=== PATIENT | male | born 1980 | race Caucasian/White ===

== ENCOUNTER 2017-10-31 18:20 | Emergency (ER) | payer MEDICARE, MEDICAID ==
--- NOTE | 2017-10-31 19:56 | EDM.PDOC ---
ED HPI GENERAL MEDICAL PROBLEM - General Chief Complaint: Back Pain or Injury Stated Complaint: PAIN ON SIDE/NUMB [id number] Time Seen by Provider: 10/31/17 19:53 Source of Information: Reports: Patient History Limitations: Reports: No Limitations - History of Present Illness INITIAL COMMENTS - FREE TEXT/NARRATIVE: C/o pain right posterior upper right hip pain, onset 2 hours ago noticed first getting off toilet then when sitting in couch. Prior had stumbled while changing clothes, did not fall. No prior injury. Feel like pressure and throbbing. Pain worse with movement. Right Lower Flank Pain Score (Numeric/FACES): 7 - Related Data Allergies Allergy/AdvReac Type Severity Reaction Status Date / Time Penicillins Allergy Rash Verified 10/31/17 18:50 Home Meds: Home Meds Glimepiride [Amaryl] 10 mg PO BIDMEALS 10/31/17 [History] Lisinopril [Zestril] 20 mg PO DAILY 10/31/17 [History] QUEtiapine [SEROquel] 100 mg PO DAILY 10/31/17 [History] Rosiglitazone [Avandia] 4 mg PO DAILY 10/31/17 [History] metFORMIN [Glucophage XR] 1,000 mg PO BIDMEALS 10/31/17 [History] Past Medical History Cardiovascular History: Reports: High Cholesterol, Hypertension Psychiatric History: Reports: Anxiety, Depression Endocrine/Metabolic History: Reports: Diabetes, Type II - Past Surgical History Musculoskeletal Surgical History: Reports: Other (See Below) Other Musculoskeletal Surgeries/Procedures:: left foot surgery Social & Family History - Tobacco Use Smoking Status *Q: Never Smoker Second Hand Smoke Exposure: No - Caffeine Use Caffeine Use: Reports: Energy Drinks, Soda - Alcohol Use Date of Last Drink: 09/01/17 - Recreational Drug Use Recreational Drug Use: No ED ROS GENERAL - Review of Systems Review Of Systems: ROS reveals no pertinent complaints other than HPI. ED EXAM,LOWER BACK PAIN/INJURY - Physical Exam Exam: See Below Exam Limited By: No Limitations General Appearance: Alert, Mild Distress ( with movment, no pain at rest) Eye Exam: Bilateral Eye: PERRL Ears: Normal External Exam Nose: Normal Inspection Throat/Mouth: Normal Inspection Head: Atraumatic, Normocephalic Neck: Normal Inspection Respiratory/Chest: No Respiratory Distress Cardiovascular: Normal Peripheral Pulses, Regular Rate, Rhythm GI/Abdominal: Normal Bowel Sounds, Soft Back Exam: Paraspinal Tenderness ( lateral low lumbar abve right hip.). No: CVA Tenderness (L), CVA Tenderness (R), Vertebral Tenderness Extremities: Normal Range of Motion (pain with 70 degree flexion of hip. Non tender with weight bearing or normal walking stance) Neurological: Alert, Normal Gait Course - Vital Signs Last Recorded V/S: Last Vital Signs Temp 97.2 F 10/31/17 20:50 Pulse 99 10/31/17 20:50 Resp 19 10/31/17 20:50 BP 146/75 H 10/31/17 20:50 Pulse Ox 98 10/31/17 20:50 - Orders/Labs/Meds Orders: Active Orders 24 hr Category Date Time Status Glucose [Blood Glucose Check, Bedside] [RC] ONETIME Care 10/31/17 20:24 Active Hip Min 2V or 3V w Pelvis Rt [CR] Stat Exams 10/31/17 19:52 Taken Labs: Laboratory Tests 10/31/17 10/31/17 Range/Units 18:52 20:29 POC Glucose 204 H (70-105) mg/dl Urine Color Dark yellow (YELLOW) Urine Appearance Slightly cloudy (CLEAR) Urine pH 7.0 (5.0-9.0) Ur Specific [place] 1.020 (1.005-1.030) Urine Protein Negative (NEGATIVE) Urine Glucose (UA) 500 H (NEGATIVE) Urine Ketones Trace H (NEGATIVE) Urine Occult Blood Negative (NEGATIVE) Urine Nitrite Negative (NEGATIVE) Urine Bilirubin Negative (NEGATIVE) Urine Urobilinogen >=8.0 H (0.2-1.0) mg/dL Ur Leukocyte Esterase Negative (NEGATIVE) Urine RBC 0-5 /HPF Urine WBC 0-5 (0-5/HPF) /HPF Ur Epithelial Cells Few /HPF Urine Bacteria Rare (0-FEW/HPF) /HPF Urine Mucus Rare /LPF Urine Other See note Departure - Departure Time of Disposition: 20:43 Disposition: Home, Self-Care 01 Condition: Good Clinical Impression: Muscle strain - Discharge Information Instructions: Muscle Strain, [id number] Forms: ED Department Discharge Additional Instructions: rest alternate tylenol and ibuprofen for discomfort ice pack 10 minutes every 2 hours as needed change positions slowly follow up if not improving - My Orders Last 24 Hours: My Active Orders 10/31/17 19:52 Hip Min 2V or 3V w Pelvis Rt [CR] Stat 10/31/17 20:24 Glucose [Blood Glucose Check, Bedside] [RC] ONETIME - Assessment/Plan Last 24 Hours: My Active Orders 10/31/17 19:52 Hip Min 2V or 3V w Pelvis Rt [CR] Stat 10/31/17 20:24 Glucose [Blood Glucose Check, Bedside] [RC] ONETIME
== END 2017-10-31 20:51 | disposition home or self-care (01) ==
LOC: DL.ED 18:20
DX: S76.011A Strain of muscle, fascia and tendon of right hip, initial encounter (principal); I10 Essential (primary) hypertension; E11.9 Type 2 diabetes mellitus without complications; Z88.0 Allergy status to penicillin; Z79.84 Long term (current) use of oral hypoglycemic drugs; Z79.899 Other long term (current) drug therapy; X58.XXXA Exposure to other specified factors, initial encounter
CPT/HCPCS: 81001; 82962; 99284

== ENCOUNTER 2018-10-30 14:21 | Emergency (ER) | payer MEDICARE, MEDICAID ==
--- NOTE | 2018-10-30 14:31 | EDM.PDOC ---
ED HPI GENERAL MEDICAL PROBLEM - General Chief Complaint: Chest Pain Stated Complaint: LEFT CHEST PAINS, COLD SWEATS, DIZZINESS Time Seen by Provider: 10/30/18 14:31 Source of Information: Reports: Patient, Old Records, RN, RN Notes Reviewed History Limitations: Reports: No Limitations - History of Present Illness INITIAL COMMENTS - FREE TEXT/NARRATIVE: Pt presents to ER with c/o cough with sharp chest especially with coughing. Pt states he was seen last week in clinic for bronchitis. Pt states he was prescribed Zithromax and Prednisone, and completed both medications without improvement. Last night he coughed so hard thinks he may have "popped a rib". He c/o low left side rib pain radiating up to under his arm pit. He reports having cold sweats and feeling shaky. Denies fever or chills. Today he was in "group therapy" and was having constant left lateral rib cage pain. C/O harsh dry cough. Duration: Week(s): (2), Constant Location: Reports: Chest Quality: Reports: Ache, Sharp Severity: Moderate Improves with: Reports: None Worsens with: Reports: Breathing (Coughing) Associated Symptoms: Reports: No Other Symptoms Left Chest Pain Score (Numeric/FACES): 6 - Related Data Allergies Allergy/AdvReac Type Severity Reaction Status Date / Time Penicillins Allergy Rash Verified 10/30/18 14:30 Home Meds: Home Meds Lisinopril [Zestril] 40 mg PO DAILY 10/31/17 [History] metFORMIN [Glucophage XR] 1,000 mg PO BIDMEALS 10/31/17 [History] Fenofibrate 160 mg PO DAILY 10/30/18 [History] Linagliptin [Tradjenta] 5 mg PO DAILY 10/30/18 [History] Prazosin HCl [Prazosin] 5 mg PO BEDTIME 10/30/18 [History] Propranolol [Inderal] 20 mg PO BID 10/30/18 [History] Venlafaxine [Venlafaxine HCl ER] 150 mg PO DAILY 10/30/18 [History] atorvaSTATin Calcium [Atorvastatin Calcium] 40 mg PO DAILY 10/30/18 [History] glipiZIDE [Glucotrol] 10 mg PO BID 10/30/18 [History] Past Medical History Cardiovascular History: Reports: High Cholesterol, Hypertension Psychiatric History: Reports: Anxiety, Depression, PTSD, Other (See Below) Other Psychiatric History: borderline personality disorder Endocrine/Metabolic History: Reports: Diabetes, Type II, Obesity/BMI 30+ - Past Surgical History Musculoskeletal Surgical History: Reports: Other (See Below) Other Musculoskeletal Surgeries/Procedures:: left foot surgery Social & Family History - Family History Family Medical History: Noncontributory - Caffeine Use Caffeine Use: Reports: Soda - Living Situation & Occupation Living situation: Reports: with Family Occupation: Disabled ED ROS GENERAL - Review of Systems Review Of Systems: ROS reveals no pertinent complaints other than HPI. ED EXAM, GENERAL - Physical Exam Exam: See Below Exam Limited By: No Limitations General Appearance: Alert, No Apparent Distress, Obese Nose: Normal Inspection, Normal Mucosa, No Blood Throat/Mouth: Normal Inspection, Normal Lips, Normal Oropharynx, Normal Voice, No Airway Compromise Head: Atraumatic, Normocephalic Neck: Normal Inspection, Supple, Non-Tender, Full Range of Motion Respiratory/Chest: No Respiratory Distress, No Accessory Muscle Use, Decreased Breath Sounds, Other (Harsh dry cough. Chest pain). No: Crackles, Rales, Rhonchi, Wheezing, Stridor Cardiovascular: Normal Peripheral Pulses, Regular Rate, Rhythm, No Edema GI/Abdominal: Normal Bowel Sounds, Soft, Non-Tender, Other (Benign obese abdomen ) Back Exam: Normal Inspection Extremities: Normal Inspection, Normal Range of Motion, Non-Tender, Normal Capillary Refill, No Pedal Edema Neurological: Alert, Oriented, CN II-XII Intact, Normal Cognition, Normal Gait, No Motor/Sensory Deficits Psychiatric: Normal Affect, Normal Mood Skin Exam: Warm, Dry, Intact, Normal Color, No Rash EKG INTERPRETATION EKG Date: 10/30/18 Time: 14:44 Rhythm: Other (SR) Rate (Beats/Min): 75 Wright: Normal P-Wave: Present QRS: Normal (with baseline wander) ST-T: Normal (slight early repol. pattern) QT: Normal Comparison: NA - No Prior EKG EKG Interpretation Comments: No acute ischemic changes. Course - Vital Signs Last Recorded V/S: Last Vital Signs Temp 97.3 F 10/30/18 14:28 Pulse 78 10/30/18 14:28 Resp 14 10/30/18 14:28 BP 125/63 10/30/18 14:28 Pulse Ox 97 10/30/18 14:28 - Orders/Labs/Meds Orders: Active Orders 24 hr Category Date Time Status EKG 12 Lead [EKG Documentation Completion] [RC] STAT Care 10/30/18 14:45 Active RT Post Treatment Assessment [RC] Click to Edit Care 10/30/18 15:28 Active RT Pre-Treatment Assessment [RC] Click to Edit Care 10/30/18 15:28 Active Labs: Laboratory Tests 10/30/18 10/30/18 10/30/18 Range/Units 14:53 14:53 14:53 WBC 9.9 (5.0-10.0) 10^3/uL RBC 4.59 L (4.6-6.2) 10^6/uL Hgb 14.1 (14.0-18.0) g/dL Hct 40.8 (40.0-54.0) % MCV 88.9 (80-100) fL MCH 30.7 (27.0-34.0) pg MCHC 34.6 (33.0-35.0) g/dL Plt Count 288 (150-450) 10^3/uL Neut % (Auto) 55.4 (42.2-75.2) % Lymph % (Auto) 34.5 (20.5-50.1) % [place] % (Auto) 7.6 (2-8) % Eos % (Auto) 2.2 (1.0-3.0) % Baso % (Auto) 0.3 (0.0-1.0) % D-Dimer, Quantitative < 100 (0-400) ng/mL Sodium 136 (135-145) mmol/L Potassium 4.2 (3.6-5.0) mmol/L Chloride 103 (101-111) mmol/L Carbon Dioxide 24.0 (21.0-31.0) mmol/L Anion Gap 13.2 BUN 17 (7-18) mg/dL Creatinine 1.2 (0.6-1.3) mg/dL Est Cr Clr Drug Dosing 90.71 mL/min Estimated GFR (MDRD) > 60 BUN/Creatinine Ratio 14.16 Glucose 204 H (74-105) mg/dL Calcium 9.5 (8.4-10.2) mg/dl Total Bilirubin 0.5 (0.2-1.0) mg/dL AST 26 (10-42) IU/L ALT 37 (10-60) IU/L Alkaline Phosphatase 39 L (42-121) IU/L Troponin I < 0.02 (0.00-0.02) ng/ml Total Protein 7.1 (6.7-8.2) g/dl Albumin 4.2 (3.2-5.5) g/dl Globulin 2.9 Albumin/Globulin Ratio 1.45 Meds: Medications Discontinued Medications Generic Name Dose Route Start Last Admin Trade Name Freq PRN Reason Stop Dose Admin Albuterol 6.7 gm 10/30/18 15:27 Proventil Hfa INH 10/30/18 15:28 ONETIME ONE - Radiology Interpretation Free Text/Narrative:: [facility] Final Radiology Report Call: [phone] assistance Online chat: [email or web address] Name: MERLE MENDOSA Age: 38Years M Date: 10/30/2018 SSN: -- : [id number] Study: XR CHEST 2 VIEWS FRONTAL & LAT Requesting Physician: MARIXA GRAY Images: 2 Addl Studies: Provided Clinical History: Contrast: Contrast Medium: Contrast Amount: Contrast Method: CONFIDENTIALITY STATEMENT This report is intended only for use by the referring physician, and only in accordance with law. If you received this in error, call [phone]. Page 1 of 1 EXAM: XR Chest, 2 Views EXAM DATE/TIME: 10/30/2018 2:44 PM CLINICAL HISTORY: 38 years old, male; Patient HX: Cough, chest pain TECHNIQUE: Imaging protocol: XR of the chest Views: 2 views. COMPARISON: No relevant prior studies available. FINDINGS: Lungs: Unremarkable. No consolidation. Pleural space: Unremarkable. No pleural effusion. No pneumothorax. Heart/Mediastinum: Unremarkable. No cardiomegaly. Bones/joints: Unremarkable. IMPRESSION: No acute findings. Thank you for allowing us to participate in the care of your patient. Dictated and Authenticated by: David Osborne MD 10/30/2018 3:10 PM Central Time ([place] & [place]) Departure - Departure Time of Disposition: 15:23 Disposition: Home, Self-Care 01 Condition: Fair Clinical Impression: Post-viral reactive airway disease, Pleurodynia, viral - Discharge Information *PRESCRIPTION DRUG MONITORING PROGRAM REVIEWED*: No *COPY OF PRESCRIPTION DRUG MONITORING REPORT IN PATIENT SHIRIN: No Instructions: Bronchospasm, Adult, [id number], Pleurodynia Forms: ED Department Discharge Additional Instructions: Rx: Tessalon Perles 200mg Rx: Naprosyn 500mg Use Albuterol Inhaler with spacer device: Two puffs every 4 hours as needed. Follow up in clinic in 3 to 5 days if not improving. - My Orders Last 24 Hours: My Active Orders 10/30/18 14:45 EKG 12 Lead [EKG Documentation Completion] [RC] STAT 10/30/18 15:28 RT Post Treatment Assessment [RC] Click to Edit RT Pre-Treatment Assessment [RC] Click to Edit - Assessment/Plan Last 24 Hours: My Active Orders 10/30/18 14:45 EKG 12 Lead [EKG Documentation Completion] [RC] STAT 10/30/18 15:28 RT Post Treatment Assessment [RC] Click to Edit RT Pre-Treatment Assessment [RC] Click to Edit
[2018-10-30 15:19] LABS: ANION GAP 13.2; CHLORIDE,CL 103 mmol/L (101-111); SODIUM,NA 136 mmol/L (135-145)
[2018-10-30] MEDS ORDERED: Albuterol 6.7 GM Inhaler INH ONE (15:27)
== END 2018-10-30 15:48 | disposition home or self-care (01) ==
LOC: DL.ED 14:21
DX: J45.909 Unspecified asthma, uncomplicated (principal); B34.9 Viral infection, unspecified; R07.81 Pleurodynia; Z88.0 Allergy status to penicillin; Z79.899 Other long term (current) drug therapy; E78.00 Pure hypercholesterolemia, unspecified; I10 Essential (primary) hypertension; E11.9 Type 2 diabetes mellitus without complications; E66.9 Obesity, unspecified; Z79.84 Long term (current) use of oral hypoglycemic drugs; F41.9 Anxiety disorder, unspecified; F32.9 Major depressive disorder, single episode, unspecified
CPT/HCPCS: 36415; 71046; 80053; 84484; 85025; 85379; 93005; 99285; A9270

== ENCOUNTER 2019-03-25 15:36 | Emergency (ER) | payer MEDICARE, MEDICAID ==
--- NOTE | 2019-03-25 17:26 | EDM.PDOC ---
<Cleveland Maher - Last Filed: 03/25/19 18:34> ED HPI GENERAL MEDICAL PROBLEM - General Chief Complaint: Lower Extremity Injury/Pain Stated Complaint: HAD DIZZY SPELL/FELL AND CRACKED ANKLE Time Seen by Provider: 03/25/19 17:25 Source of Information: Reports: Patient History Limitations: Reports: No Limitations - History of Present Illness INITIAL COMMENTS - FREE TEXT/NARRATIVE: 38 y.o M presents with L ankle pain that happened this afternoon. Patient reports that he was walking at home and developed a dizzy spell, reports possible LOC, and reports that L leg gave out. Patient reports falling and hearing a pop in the L ankle. Patient reports numbness now to the L leg as well as diminished sensation. Hx of surgery to the L foot in 2014 with pins. No medications. Patient reports this is his second syncopal episode recently and when the nurse was checking orthostatics he felt a little dizzy again. Onset: Today Location: Reports: Lower Extremity, Left Quality: Reports: Ache Severity: Mild Associated Symptoms: Reports: Syncope. Denies: Chest Pain, Cough, Fever/Chills , Headaches, Loss of Appetite, Nausea/Vomiting Left Ankle Pain Score (Numeric/FACES): 9 - Related Data Allergies Allergy/AdvReac Type Severity Reaction Status Date / Time Penicillins Allergy Rash Verified 03/25/19 16:53 Home Meds: Home Meds Lisinopril [Zestril] 40 mg PO DAILY 10/31/17 [History] metFORMIN [Glucophage XR] 1,000 mg PO BIDMEALS 10/31/17 [History] Fenofibrate 160 mg PO DAILY 10/30/18 [History] Linagliptin [Tradjenta] 5 mg PO DAILY 10/30/18 [History] Venlafaxine [Venlafaxine HCl ER] 225 mg PO DAILY 10/30/18 [History] atorvaSTATin Calcium [Atorvastatin Calcium] 40 mg PO DAILY 10/30/18 [History] glipiZIDE [Glucotrol] 10 mg PO BID 10/30/18 [History] lamoTRIgine [Lamictal] 25 mg PO DAILY 01/23/19 [History] Past Medical History HEENT History: Reports: None Cardiovascular History: Reports: High Cholesterol, Hypertension Respiratory History: Reports: None Gastrointestinal History: Reports: None Genitourinary History: Reports: None Musculoskeletal History: Reports: Fracture Neurological History: Reports: None Psychiatric History: Reports: Anxiety, Depression, PTSD, Other (See Below) Other Psychiatric History: borderline personality disorder Endocrine/Metabolic History: Reports: Diabetes, Type II, Obesity/BMI 30+ Hematologic History: Reports: None Immunologic History: Reports: None Oncologic (Cancer) History: Reports: None Dermatologic History: Reports: None - Infectious Disease History Infectious Disease History: Reports: Chicken Pox - Past Surgical History Head Surgeries/Procedures: Reports: None HEENT Surgical History: Reports: None GI Surgical History: Reports: None Male Surgical History: Reports: None Neurological Surgical History: Reports: None Musculoskeletal Surgical History: Reports: Other (See Below) Other Musculoskeletal Surgeries/Procedures:: left foot surgery Oncologic Surgical History: Reports: None Social & Family History - Family History Family Medical History: Noncontributory - Tobacco Use Smoking Status *Q: Never Smoker - Caffeine Use Caffeine Use: Reports: Soda - Recreational Drug Use Recreational Drug Use: No - Living Situation & Occupation Living situation: Reports: with Family Occupation: Disabled Review of Systems - Review of Systems Review Of Systems: See Below Constitutional: Reports: No Symptoms Eyes: Reports: No Symptoms Ears: Reports: No Symptoms Nose: Reports: No Symptoms Respiratory: Reports: No Symptoms Cardiovascular: Reports: Lightheadedness, Syncope. Denies: Palpitations GI/Abdominal: Reports: No Symptoms Musculoskeletal: Reports: No Symptoms Skin: Reports: No Symptoms Neurological: Reports: Dizziness. Denies: Confusion, Headache, Trouble Speaking , Weakness Psychiatric: Reports: No Symptoms ED EXAM, GENERAL - Physical Exam Exam: See Below Exam Limited By: No Limitations General Appearance: Alert, WD/WN, No Apparent Distress Eye Exam: Bilateral Eye: EOMI, Normal Inspection, PERRL Ears: Normal External Exam, Normal Canal, Hearing Grossly Normal, Normal TMs Ear Exam: Bilateral Ear: Auricle Normal, Canal Normal, TM normal Nose: Normal Inspection, Normal Mucosa, No Blood Throat/Mouth: Normal Inspection, Normal Lips, Normal Teeth, Normal Gums, Normal Oropharynx, Normal Voice, No Airway Compromise Head: Atraumatic, Normocephalic Neck: Normal Inspection, Supple, Non-Tender, Full Range of Motion Respiratory/Chest: No Respiratory Distress, Lungs Clear, Normal Breath Sounds, No Accessory Muscle Use, Chest Non-Tender Cardiovascular: Normal Peripheral Pulses, Regular Rate, Rhythm, No Edema, No Gallop, No JVD, No Murmur, No Rub Peripheral Pulses: 2+: Posterior Tibial (L), Dorsalis Pedis (L) GI/Abdominal: Normal Bowel Sounds, Soft, Non-Tender, No Organomegaly, No Distention, No Abnormal Bruit, No Mass (Male) Exam: Deferred Rectal (Males) Exam: Deferred Back Exam: Normal Inspection, Full Range of Motion, NT Extremities: Normal Inspection, Non-Tender, No Pedal Edema, Normal Capillary Refill, Limited Range of Motion (left ankle) Neurological: Alert, Oriented, CN II-XII Intact, Normal Cognition, Normal Gait, Normal Reflexes, No Motor/Sensory Deficits Psychiatric: Normal Affect, Normal Mood Skin Exam: Warm, Dry, Intact, Normal Color, No Rash Lymphatic: No Adenopathy Course - Vital Signs Last Recorded V/S: Last Vital Signs Temp 96.7 F 03/25/19 16:46 Pulse 103 H 03/25/19 16:46 Resp 18 03/25/19 16:46 BP 139/94 H 03/25/19 16:46 Pulse Ox 97 03/25/19 16:46 Orthostatic Blood Pressure [ 122/74 Standing] Orthostatic Blood Pressure [ 115/57 Sitting] Orthostatic Blood Pressure [ 120/68 Supine] - Orders/Labs/Meds Orders: Active Orders 24 hr Category Date Time Status Blood Glucose Check, Bedside [RC] ONETIME Care 03/25/19 17:38 Active EKG 12 Lead [EKG Documentation Completion] [RC] STAT Care 03/25/19 17:37 Active Orthostatic Vital Signs [RC] ASDIRECTED Care 03/25/19 17:35 Active Peripheral IV Care [RC] . DIRECTED Care 03/25/19 17:38 Active Ankle Min 3V Lt [CR] Urgent Exams 03/25/19 16:59 Taken Chest 1V Frontal [CR] Stat Exams 03/25/19 17:37 Taken Head wo Cont [CT] Stat Exams 03/25/19 17:38 Taken DRUG SCREEN URINE BIORAD [URCHEM] Stat Lab 03/25/19 17:38 Ordered UA RFX JOAN AND CULT IF INDIC [URIN] Stat Lab 03/25/19 17:38 Ordered Sodium Chloride 0.9% [Saline Flush] Med 03/25/19 17:38 Active 10 ml FLUSH ASDIRECTED PRN Peripheral IV Insertion Adult [OM.PC] Stat Oth 03/25/19 17:37 Ordered Medication Orders Sodium Chloride (Saline Flush) 10 ml FLUSH ASDIRECTED PRN PRN Reason: Keep Vein Open Last Admin: 03/25/19 18:21 Dose: 10 ml Labs: Laboratory Tests 03/25/19 03/25/19 03/25/19 Range/Units 17:36 17:36 17:36 WBC 10.7 H (5.0-10.0) 10^3/uL RBC 5.00 (4.6-6.2) 10^6/uL Hgb 15.4 D (14.0-18.0) g/dL Hct 44.1 (40.0-54.0) % MCV 88.2 (80-100) fL MCH 30.8 (27.0-34.0) pg MCHC 34.9 (33.0-35.0) g/dL Plt Count 362 (150-450) 10^3/uL Neut % (Auto) 46.0 (42.2-75.2) % Lymph % (Auto) 44.2 (20.5-50.1) % [place] % (Auto) 7.9 (2-8) % Eos % (Auto) 1.7 (1.0-3.0) % Baso % (Auto) 0.2 (0.0-1.0) % D-Dimer, Quantitative 180 (0-400) ng/mL Sodium 134 L (135-145) mmol/L Potassium 4.0 (3.6-5.0) mmol/L Chloride 100 L (101-111) mmol/L Carbon Dioxide 24.0 (21.0-31.0) mmol/L Anion Gap 14.0 BUN 18 (7-18) mg/dL Creatinine 1.2 (0.6-1.3) mg/dL Est Cr Clr Drug Dosing 93.40 mL/min Estimated GFR (MDRD) > 60 BUN/Creatinine Ratio 15.00 Glucose 212 H (74-105) mg/dL POC Glucose (70-105) mg/dl Calcium 10.3 H (8.4-10.2) mg/dl Magnesium 1.6 L (1.8-2.5) mg/dL Total Bilirubin 0.7 (0.2-1.0) mg/dL AST 29 (10-42) IU/L ALT 40 (10-60) IU/L Alkaline Phosphatase 50 (42-121) IU/L Troponin I 0.05 H* (0.00-0.02) ng/ml Total Protein 8.6 H (6.7-8.2) g/dl Albumin 5.0 (3.2-5.5) g/dl Globulin 3.6 Albumin/Globulin Ratio 1.39 TSH, Ultra Sensitive (0.45-5.33) uIu/mL 03/25/19 03/25/19 Range/Units 17:36 17:51 WBC (5.0-10.0) 10^3/uL RBC (4.6-6.2) 10^6/uL Hgb (14.0-18.0) g/dL Hct (40.0-54.0) % MCV (80-100) fL MCH (27.0-34.0) pg MCHC (33.0-35.0) g/dL Plt Count (150-450) 10^3/uL Neut % (Auto) (42.2-75.2) % Lymph % (Auto) (20.5-50.1) % [place] % (Auto) (2-8) % Eos % (Auto) (1.0-3.0) % Baso % (Auto) (0.0-1.0) % D-Dimer, Quantitative (0-400) ng/mL Sodium (135-145) mmol/L Potassium (3.6-5.0) mmol/L Chloride (101-111) mmol/L Carbon Dioxide (21.0-31.0) mmol/L Anion Gap BUN (7-18) mg/dL Creatinine (0.6-1.3) mg/dL Est Cr Clr Drug Dosing mL/min Estimated GFR (MDRD) BUN/Creatinine Ratio Glucose (74-105) mg/dL POC Glucose 163 H (70-105) mg/dl Calcium (8.4-10.2) mg/dl Magnesium (1.8-2.5) mg/dL Total Bilirubin (0.2-1.0) mg/dL AST (10-42) IU/L ALT (10-60) IU/L Alkaline Phosphatase (42-121) IU/L Troponin I (0.00-0.02) ng/ml Total Protein (6.7-8.2) g/dl Albumin (3.2-5.5) g/dl Globulin Albumin/Globulin Ratio TSH, Ultra Sensitive 1.24 (0.45-5.33) uIu/mL Meds: Medications Generic Name Dose Route Start Last Admin Trade Name Freq PRN Reason Stop Dose Admin Sodium Chloride 10 ml 03/25/19 17:38 03/25/19 18:21 Saline Flush FLUSH 10 ml ASDIRECTED PRN Administration Keep Vein Open Discontinued Medications Generic Name Dose Route Start Last Admin Trade Name Freq PRN Reason Stop Dose Admin Aspirin 324 mg 03/25/19 19:08 03/25/19 19:15 Aspirin PO 03/25/19 19:09 324 mg ONETIME ONE Administration Sodium Chloride 1,000 mls @ 999 mls/hr 03/25/19 17:45 03/25/19 18:21 Normal Saline IV 03/25/19 18:45 999 mls/hr .BOLUS ONE Administration Departure - Departure Disposition: DC/Tfer to Acute Hospital 02 Clinical Impression: Elevated troponin Syncope Qualifiers: Syncope type: unspecified Qualified Code(s): R55 - Syncope and collapse Minor head injury Qualifiers: Encounter type: initial encounter Qualified Code(s): S09.90XA - Unspecified injury of head, initial encounter - Discharge Information Forms: ED Department Discharge Sepsis Event Note - Evaluation Sepsis Screening Result: No Definite Risk - Focused Exam Vital Signs: Vital Signs Temp Pulse Resp BP Pulse Ox 03/25/19 16:46 96.7 F 103 H 18 139/94 H 97 Date Exam was Performed: 03/25/19 Time Exam was Performed: 18:34 - My Orders Last 24 Hours: My Active Orders 03/25/19 16:59 Ankle Min 3V Lt [CR] Urgent 03/25/19 17:37 EKG 12 Lead [EKG Documentation Completion] [RC] STAT Chest 1V Frontal [CR] Stat Peripheral IV Insertion Adult [OM.PC] Stat 03/25/19 17:38 Blood Glucose Check, Bedside [RC] ONETIME Peripheral IV Care [RC] . DIRECTED Head wo Cont [CT] Stat DRUG SCREEN URINE BIORAD [URCHEM] Stat UA RFX JOAN AND CULT IF INDIC [URIN] Stat Sodium Chloride 0.9% [Saline Flush] 10 ml FLUSH ASDIRECTED PRN - Assessment/Plan Last 24 Hours: My Active Orders 03/25/19 16:59 Ankle Min 3V Lt [CR] Urgent 03/25/19 17:37 EKG 12 Lead [EKG Documentation Completion] [RC] STAT Chest 1V Frontal [CR] Stat Peripheral IV Insertion Adult [OM.PC] Stat 03/25/19 17:38 Blood Glucose Check, Bedside [RC] ONETIME Peripheral IV Care [RC] . DIRECTED Head wo Cont [CT] Stat DRUG SCREEN URINE BIORAD [URCHEM] Stat UA RFX JOAN AND CULT IF INDIC [URIN] Stat Sodium Chloride 0.9% [Saline Flush] 10 ml FLUSH ASDIRECTED PRN <Marixa Gilliam - Last Filed: 03/25/19 19:20> ED HPI GENERAL MEDICAL PROBLEM - History of Present Illness INITIAL COMMENTS - FREE TEXT/NARRATIVE: Pt presented to ER with c/o left ankle pain, but arrives diaphoretic reporting that he had a syncopal episode which is how he hurt his ankle. Pt denies chest pain. Pt got up to throw a pop bottle in the trash when he became very lightheaded and "blacked out". He woke up on the floor, unsure of how long he was unconscious, but believes it was seconds, not minutes. Pt has ED EXAM, GENERAL - Physical Exam Free Text/Narrative:: No changes to the exam as documented by the student for this exam. EKG INTERPRETATION EKG Date: 03/25/19 Time: 17:46 Rhythm: Other (sinus rhythm) Rate (Beats/Min): 95 [place]: Normal P-Wave: Present QRS: Normal ST-T: Normal QT: Normal Comparison: No Change Course - Radiology Interpretation Free Text/Narrative:: [facility] [place] [facility] Final Radiology Report Call: [phone] assistance Online chat: [email or web address] Name: MERLE MENDOSA Age: 38Years M Date: 03/25/2019 SSN: -- : [id number] Study: CT HEAD WO Requesting Physician: MARIXA GILLIAM Images: 136 Addl Studies: Provided Clinical History: Contrast: Without Contrast Medium: Contrast Amount: Contrast Method: Page 1 of 2 PROCEDURE INFORMATION: Exam: CT Head Without Contrast Exam date and time: 03/25/2019 6:07 PM Age: 38 years old Clinical indication: Injury or trauma; Fall TECHNIQUE: Imaging protocol: Computed tomography of the head without contrast. Radiation optimization: All CT scans at this facility use at least one of these dose optimization techniques: automated exposure control; mA and/or kV adjustment per patient size (includes targeted exams where dose is matched to clinical indication); or iterative reconstruction. COMPARISON: CT Head wo Cont 03/01/2018 1:36 PM FINDINGS: Brain: There is no evidence of acute hemorrhage within the brain parenchyma or the subarachnoid space. Ventricles: There is no significant ventricular effacement or midline shift. The ventricular system is normal in size and distribution. Bones/joints: The skull is normal. Sinuses: The visualized portions of the sinuses are normal. Mastoid air cells: The mastoid sinuses are normal. Orbits: The visualized portions of the orbits are normal. Soft tissues: The extracranial soft tissues are normal. IMPRESSION: 1. No acute abnormality. 2. No significant change is identified since the prior exam. MERLE MENDOSA | Final Radiology Report CONFIDENTIALITY STATEMENT This report is intended only for use by the referring physician, and only in accordance with law. If you received this in error, call [phone]. Page 2 of 2 Thank you for allowing us to participate in the care of your patient. Dictated and Authenticated by: David Osborne MD 03/25/2019 6:35 PM Central Time ([place] & [place]) [facility] Final Radiology Report Call: [phone] assistance Online chat: [email or web address] Name: MERLE MENDOSA Age: 38Years M Date: 03/25/2019 SSN: -- : 1980 Study: XR CHEST 1 VIEW FRONTAL Requesting Physician: MARIXA GILLIAM Images: 1 Addl Studies: Provided Clinical History: Contrast: Contrast Medium: Contrast Amount: Contrast Method: CONFIDENTIALITY STATEMENT This report is intended only for use by the referring physician, and only in accordance with law. If you received this in error, call [phone]. Page 1 of 1 PROCEDURE INFORMATION: Exam: XR Chest, 1 View Exam date and time: 03/25/2019 6:12 PM Age: 38 years old Clinical indication: Other: Syncope TECHNIQUE: Imaging protocol: XR of the chest Views: 1 view. COMPARISON: CR Chest 1V Frontal 01/23/2019 12:09 PM FINDINGS: Lungs: Unremarkable. No consolidation. Pleural space: Unremarkable. No pleural effusion. No pneumothorax. Heart/Mediastinum: Unremarkable. No cardiomegaly. Bones/joints: Unremarkable. IMPRESSION: No acute findings. Thank you for allowing us to participate in the care of your patient. Dictated and Authenticated by: David Obsorne MD 03/25/2019 6:33 PM Central Time ([place] & [place]) [facility] Final Radiology Report Call: [phone] assistance Online chat: [email or web address] Name: MERLE MENDOSA Age: 38Years M Date: 03/25/2019 SSN: -- : 1980 Study: XR ANKLE COMPLETE MIN 3 VIEWS LEFT Requesting Physician: MARIXA GILLIAM Images: 3 Addl Studies: Provided Clinical History: Contrast: Contrast Medium: Contrast Amount: Contrast Method: CONFIDENTIALITY STATEMENT This report is intended only for use by the referring physician, and only in accordance with law. If you received this in error, call [phone]. Page 1 of 1 PROCEDURE INFORMATION: Exam: XR Left Ankle Exam date and time: 03/25/2019 5:02 PM Age: 38 years old Clinical indication: Pain; Ankle; Left TECHNIQUE: Imaging protocol: XR Left ankle. Views: 3 or more views. COMPARISON: No relevant prior studies available. FINDINGS: Bones/joints: There is spurring of the anterior aspect of the tibiotalar joint. Calcaneal spurs are demonstrated at the origin of the plantar fascia and the insertion of the Achilles tendon. There is no evidence of acute fracture. Soft tissues: There is mild soft tissue swelling. IMPRESSION: Soft tissue swelling without acute bony abnormality. Thank you for allowing us to participate in the care of your patient. Dictated and Authenticated by: David Osborne MD 03/25/2019 5:16 PM Central Time ([place] & [place]) - Re-Assessments/Exams Free Text/Narrative Re-Assessment/Exam: 03/25/19 19:19 I personally performed or re-performed the physical examination and medical decision making. I have verified all student documentation or findings, including history, physical exam and/or medical decision making. Departure - Departure Time of Disposition: 19:19 Condition: Fair, Undetermined - Discharge Information *PRESCRIPTION DRUG MONITORING PROGRAM REVIEWED*: Not Applicable *COPY OF PRESCRIPTION DRUG MONITORING REPORT IN PATIENT SHIRIN: Not Applicable Sepsis Event Note - Focused Exam Date Exam was Performed: 03/25/19 Time Exam was Performed: 19:16
[2019-03-25] MEDS ORDERED: Sodium Chloride 0.9% 10 ML Syringe FLUSH PRN (17:38)
[2019-03-25] MEDS ORDERED: Sodium Chloride 0.9% 1,000 ML IV ONE (17:45)
[2019-03-25 18:04] LABS: CHLORIDE,CL 100 mmol/L (101-111); SODIUM,NA 134 mmol/L (135-145)
[2019-03-25] MEDS ORDERED: Aspirin 81 MG Tab.Chew PO ONE (19:08)
== END 2019-03-25 20:40 ==
LOC: DL.ED 15:36
DX: S06.9X9A Unspecified intracranial injury with loss of consciousness of unspecified duration, initial encounter (principal); R79.89 Other specified abnormal findings of blood chemistry; E78.00 Pure hypercholesterolemia, unspecified; I10 Essential (primary) hypertension; E11.9 Type 2 diabetes mellitus without complications; E66.9 Obesity, unspecified; F41.9 Anxiety disorder, unspecified; F32.9 Major depressive disorder, single episode, unspecified; Z79.899 Other long term (current) drug therapy; Z79.84 Long term (current) use of oral hypoglycemic drugs; Z68.37 Body mass index [BMI] 37.0-37.9, adult; Z88.0 Allergy status to penicillin; W19.XXXA Unspecified fall, initial encounter; Y93.01 Activity, walking, marching and hiking; Y92.009 Unspecified place in unspecified non-institutional (private) residence as the place of occurrence of the external cause
CPT/HCPCS: 36415; 70450; 71045; 73610; 80053; 80305; 81003; 82962; 83735; 84443; 84484; 85025; 85379; 93005; 96360; 99285; A9270; J7030

== ENCOUNTER 2019-04-12 19:11 | Emergency (ER) | payer MEDICARE, MEDICAID ==
[2019-04-12] MEDS ORDERED: Aspirin 81 MG Tab.Chew PO ONE (19:16)
[2019-04-12 19:46] LABS: ANION GAP 14.1; CHLORIDE,CL 103 mmol/L (101-111); SODIUM,NA 135 mmol/L (135-145)
[2019-04-12] MEDS ORDERED: Nitroglycerin 0.4 MG Tab.SL SL ONE (20:04)
--- NOTE | 2019-04-12 20:09 | EDM.PDOC ---
ED HPI GENERAL MEDICAL PROBLEM - General Chief Complaint: Chest Pain Stated Complaint: CHEST PRESSURE Time Seen by Provider: 04/12/19 19:13 Source of Information: Reports: Patient History Limitations: Reports: No Limitations - History of Present Illness INITIAL COMMENTS - FREE TEXT/NARRATIVE: chest pain constant x 2 weeks, doesn't really change with activity, o SOB, Intermittent dizziness, Pain sharp, pressure, No change with movement. rates / . States has seen neurology for dizziness is scheduled to see cardiology as last ED visit initial troponin elevated and transferred to [facility], Repeat negative and was discharged home. Denied tobacco use. No GI sx. No fever or chills. No recent cough. No nausea or vomiting. No change in appetite. Denied anxiety. Mid-Sternal Chest Pain Score (Numeric/FACES): 9 - Related Data Allergies Allergy/AdvReac Type Severity Reaction Status Date / Time Penicillins Allergy Rash Verified 04/12/19 19:24 Home Meds: Home Meds Lisinopril [Zestril] 40 mg PO DAILY 10/31/17 [History] metFORMIN [Glucophage XR] 1,000 mg PO BIDMEALS 10/31/17 [History] Fenofibrate 160 mg PO DAILY 10/30/18 [History] Linagliptin [Tradjenta] 5 mg PO DAILY 10/30/18 [History] Venlafaxine [Venlafaxine HCl ER] 225 mg PO DAILY 10/30/18 [History] atorvaSTATin Calcium [Atorvastatin Calcium] 40 mg PO DAILY 10/30/18 [History] glipiZIDE [Glucotrol] 10 mg PO BID 10/30/18 [History] lamoTRIgine [Lamictal] 25 mg PO DAILY 01/23/19 [History] Past Medical History HEENT History: Reports: None Cardiovascular History: Reports: High Cholesterol, Hypertension Respiratory History: Reports: None Gastrointestinal History: Reports: None Genitourinary History: Reports: None Musculoskeletal History: Reports: Fracture Neurological History: Reports: None Psychiatric History: Reports: Anxiety, Depression, PTSD, Other (See Below) Other Psychiatric History: borderline personality disorder Endocrine/Metabolic History: Reports: Diabetes, Type II, Obesity/BMI 30+ Hematologic History: Reports: None Immunologic History: Reports: None Oncologic (Cancer) History: Reports: None Dermatologic History: Reports: None - Infectious Disease History Infectious Disease History: Reports: Chicken Pox - Past Surgical History Head Surgeries/Procedures: Reports: None HEENT Surgical History: Reports: None GI Surgical History: Reports: None Male Surgical History: Reports: None Neurological Surgical History: Reports: None Musculoskeletal Surgical History: Reports: Other (See Below) Other Musculoskeletal Surgeries/Procedures:: left foot surgery Oncologic Surgical History: Reports: None Social & Family History - Family History Family Medical History: Noncontributory - Tobacco Use Smoking Status *Q: Never Smoker Second Hand Smoke Exposure: No - Caffeine Use Caffeine Use: Reports: Soda - Recreational Drug Use Recreational Drug Use: No - Living Situation & Occupation Living situation: Reports: with Family Occupation: Disabled ED ROS GENERAL - Review of Systems Review Of Systems: Comprehensive ROS is negative, except as noted in HPI. ED EXAM, GENERAL - Physical Exam Exam: See Below Exam Limited By: No Limitations General Appearance: Alert, No Apparent Distress Eye Exam: Bilateral Eye: EOMI Ears: Normal External Exam, Hearing Grossly Normal, Normal TMs Nose: Normal Inspection Throat/Mouth: Normal Inspection, Normal Voice Head: Atraumatic, Normocephalic Neck: Normal Inspection Respiratory/Chest: No Respiratory Distress, Lungs Clear, Normal Breath Sounds Cardiovascular: Normal Peripheral Pulses, Regular Rate, Rhythm, No Edema, No JVD , No Rub GI/Abdominal: Normal Bowel Sounds, Soft, Non-Tender Rectal (Males) Exam: Normal Exam Extremities: Normal Range of Motion Neurological: Alert, Oriented Psychiatric: Flat Affect Skin Exam: Warm, Dry, Wound/Incision (dime size abrasion right elbow). No: Diaphoretic, Erythema, Increased Warmth EKG INTERPRETATION Rhythm: NSR Course - Vital Signs Last Recorded V/S: Last Vital Signs Temp 96 F L 04/12/19 19:13 Pulse 94 04/12/19 19:13 Resp 18 04/12/19 19:13 BP 123/77 04/12/19 20:09 Pulse Ox 97 04/12/19 19:13 - Orders/Labs/Meds Orders: Active Orders 24 hr Category Date Time Status EKG 12 Lead [EKG Documentation Completion] [RC] URGENT Care 04/12/19 22:59 Active EKG Documentation Completion [RC] URGENT Care 04/12/19 19:16 Active Labs: Laboratory Tests 04/12/19 04/12/19 04/12/19 Range/Units 19:20 19:20 19:20 WBC 8.3 (5.0-10.0) 10^3/uL RBC 4.63 (4.6-6.2) 10^6/uL Hgb 14.3 (14.0-18.0) g/dL Hct 40.3 (40.0-54.0) % MCV 87.0 (80-100) fL MCH 30.9 (27.0-34.0) pg MCHC 35.5 H (33.0-35.0) g/dL Plt Count 317 (150-450) 10^3/uL Neut % (Auto) 47.0 (42.2-75.2) % Lymph % (Auto) 43.2 (20.5-50.1) % Whitfield % (Auto) 7.5 (2-8) % Eos % (Auto) 2.1 (1.0-3.0) % Baso % (Auto) 0.2 (0.0-1.0) % D-Dimer, Quantitative < 100 (0-400) ng/mL Sodium 135 (135-145) mmol/L Potassium 4.1 (3.6-5.0) mmol/L Chloride 103 (101-111) mmol/L Carbon Dioxide 22.0 (21.0-31.0) mmol/L Anion Gap 14.1 BUN 11 (7-18) mg/dL Creatinine 1.0 (0.6-1.3) mg/dL Est Cr Clr Drug Dosing 112.08 mL/min Estimated GFR (MDRD) > 60 BUN/Creatinine Ratio 11.00 Glucose 265 H (74-105) mg/dL Lactic Acid (0.5-2.0) mmol/L Calcium 9.6 (8.4-10.2) mg/dl Magnesium 1.5 L (1.8-2.5) mg/dL Total Bilirubin 0.6 (0.2-1.0) mg/dL AST 26 (10-42) IU/L ALT 36 (10-60) IU/L Alkaline Phosphatase 48 (42-121) IU/L CK-MB (CK-2) (0.4-4.7) ng/mL Troponin I 0.04 H* (0.00-0.02) ng/ml C-Reactive Protein (0.0-1.3) mg/dL Total Protein 7.3 (6.7-8.2) g/dl Albumin 4.2 (3.2-5.5) g/dl Globulin 3.1 Albumin/Globulin Ratio 1.35 Amylase 67 (28-100) U/L Lipase 101 H (22-51) U/L TSH, Ultra Sensitive (0.45-5.33) uIu/mL 04/12/19 04/12/19 04/12/19 Range/Units 19:20 19:20 19:20 WBC (5.0-10.0) 10^3/uL RBC (4.6-6.2) 10^6/uL Hgb (14.0-18.0) g/dL Hct (40.0-54.0) % MCV (80-100) fL MCH (27.0-34.0) pg MCHC (33.0-35.0) g/dL Plt Count (150-450) 10^3/uL Neut % (Auto) (42.2-75.2) % Lymph % (Auto) (20.5-50.1) % Whitfield % (Auto) (2-8) % Eos % (Auto) (1.0-3.0) % Baso % (Auto) (0.0-1.0) % D-Dimer, Quantitative (0-400) ng/mL Sodium (135-145) mmol/L Potassium (3.6-5.0) mmol/L Chloride (101-111) mmol/L Carbon Dioxide (21.0-31.0) mmol/L Anion Gap BUN (7-18) mg/dL Creatinine (0.6-1.3) mg/dL Est Cr Clr Drug Dosing mL/min Estimated GFR (MDRD) BUN/Creatinine Ratio Glucose (74-105) mg/dL Lactic Acid 2.1 H* (0.5-2.0) mmol/L Calcium (8.4-10.2) mg/dl Magnesium (1.8-2.5) mg/dL Total Bilirubin (0.2-1.0) mg/dL AST (10-42) IU/L ALT (10-60) IU/L Alkaline Phosphatase (42-121) IU/L CK-MB (CK-2) 2.90 (0.4-4.7) ng/mL Troponin I (0.00-0.02) ng/ml C-Reactive Protein (0.0-1.3) mg/dL Total Protein (6.7-8.2) g/dl Albumin (3.2-5.5) g/dl Globulin Albumin/Globulin Ratio Amylase (28-100) U/L Lipase (22-51) U/L TSH, Ultra Sensitive 1.02 (0.45-5.33) uIu/mL 04/12/19 04/12/19 Range/Units 19:20 22:20 WBC (5.0-10.0) 10^3/uL RBC (4.6-6.2) 10^6/uL Hgb (14.0-18.0) g/dL Hct (40.0-54.0) % MCV (80-100) fL MCH (27.0-34.0) pg MCHC (33.0-35.0) g/dL Plt Count (150-450) 10^3/uL Neut % (Auto) (42.2-75.2) % Lymph % (Auto) (20.5-50.1) % Whitfield % (Auto) (2-8) % Eos % (Auto) (1.0-3.0) % Baso % (Auto) (0.0-1.0) % D-Dimer, Quantitative (0-400) ng/mL Sodium (135-145) mmol/L Potassium (3.6-5.0) mmol/L Chloride (101-111) mmol/L Carbon Dioxide (21.0-31.0) mmol/L Anion Gap BUN (7-18) mg/dL Creatinine (0.6-1.3) mg/dL Est Cr Clr Drug Dosing mL/min Estimated GFR (MDRD) BUN/Creatinine Ratio Glucose (74-105) mg/dL Lactic Acid (0.5-2.0) mmol/L Calcium (8.4-10.2) mg/dl Magnesium (1.8-2.5) mg/dL Total Bilirubin (0.2-1.0) mg/dL AST (10-42) IU/L ALT (10-60) IU/L Alkaline Phosphatase (42-121) IU/L CK-MB (CK-2) (0.4-4.7) ng/mL Troponin I < 0.02 (0.00-0.02) ng/ml C-Reactive Protein 2.1 H (0.0-1.3) mg/dL Total Protein (6.7-8.2) g/dl Albumin (3.2-5.5) g/dl Globulin Albumin/Globulin Ratio Amylase (28-100) U/L Lipase (22-51) U/L TSH, Ultra Sensitive (0.45-5.33) uIu/mL Meds: Medications Discontinued Medications Generic Name Dose Route Start Last Admin Trade Name Freq PRN Reason Stop Dose Admin Al Hydroxide/Mg Hydroxide 30 ml 04/12/19 20:35 04/12/19 20:53 Gi Cocktail PO 04/12/19 20:36 30 ml ONETIME ONE Administration Aspirin 324 mg 04/12/19 19:16 04/12/19 19:22 Aspirin PO 04/12/19 19:17 324 mg ONETIME ONE Administration Famotidine 20 mg 04/12/19 21:00 04/12/19 21:04 Pepcid IVPUSH 04/12/19 21:01 20 mg ONETIME ONE Administration Nitroglycerin 0.4 mg 04/12/19 20:04 04/12/19 20:09 Nitrostat SL 04/12/19 20:05 0.4 mg ONETIME ONE Administration - Re-Assessments/Exams Free Text/Narrative Re-Assessment/Exam: Trial nitro, dropped BP, c.o feeling worse and dizzy. No change in chest pain. Some improvement in pain with GI cocktail. Departure - Departure Time of Disposition: 23:02 Disposition: Home, Self-Care 01 Condition: Good Clinical Impression: Atypical chest pain Instructions: Nonspecific Chest Pain, [id number] Referrals: Maryellen Salgado NP [Ordering Only Provider] - Forms: ED Department Discharge Additional Instructions: light bland diet, low fat clinic follow up on sunday Omeprazole 10mg one twice daily for one week then one daily Sepsis Event Note - Evaluation Sepsis Screening Result: No Definite Risk - Focused Exam Vital Signs: Vital Signs Temp Pulse Resp BP BP Pulse Ox 04/12/19 20:09 123/77 04/12/19 19:13 96 F L 94 18 147/80 H 97 Date Exam was Performed: 04/13/19 Time Exam was Performed: 02:27 - My Orders Last 24 Hours: My Active Orders 04/12/19 19:16 EKG Documentation Completion [RC] URGENT 04/12/19 22:59 EKG 12 Lead [EKG Documentation Completion] [RC] URGENT - Assessment/Plan Last 24 Hours: My Active Orders 04/12/19 19:16 EKG Documentation Completion [RC] URGENT 04/12/19 22:59 EKG 12 Lead [EKG Documentation Completion] [RC] URGENT
[2019-04-12] MEDS ORDERED: GI Cocktail Oral Solution 30 ML PO ONE (20:35)
[2019-04-12] MEDS ORDERED: Famotidine 20 MG/2 ML SDV IVPUSH ONE (21:00)
== END 2019-04-12 23:12 | disposition home or self-care (01) ==
LOC: DL.ED 19:11
DX: R07.89 Other chest pain (principal)
CPT/HCPCS: 36415; 80053; 82150; 82553; 83605; 83690; 83735; 84443; 84484; 85025; 85379; 86140; 93005; 96374; 99284; 99285; A9270; J3490

== ENCOUNTER 2019-04-19 13:28 | Emergency (ER) | payer MEDICARE, MEDICAID ==
--- NOTE | 2019-04-19 14:14 | EDM.PDOC ---
ED HPI GENERAL MEDICAL PROBLEM - General Chief Complaint: General Stated Complaint: DIZZY/LIGHTHEADED/CHILLS Time Seen by Provider: 04/19/19 13:45 Source of Information: Reports: Patient, RN Notes Reviewed History Limitations: Reports: No Limitations - History of Present Illness INITIAL COMMENTS - FREE TEXT/NARRATIVE: ED with c/o feeling warm, dizzy this am. body aches. Concerned, due to previous syncopal episodes. Upcoming cardiology evaluation. - Related Data Allergies Allergy/AdvReac Type Severity Reaction Status Date / Time Penicillins Allergy Rash Verified 04/19/19 13:35 Home Meds: Home Meds Lisinopril [Zestril] 40 mg PO DAILY 10/31/17 [History] metFORMIN [Glucophage XR] 1,000 mg PO BIDMEALS 10/31/17 [History] Fenofibrate 160 mg PO DAILY 10/30/18 [History] Linagliptin [Tradjenta] 5 mg PO DAILY 10/30/18 [History] Venlafaxine [Venlafaxine HCl ER] 225 mg PO DAILY 10/30/18 [History] atorvaSTATin Calcium [Atorvastatin Calcium] 40 mg PO DAILY 10/30/18 [History] glipiZIDE [Glucotrol] 10 mg PO BID 10/30/18 [History] lamoTRIgine [Lamictal] 25 mg PO DAILY 01/23/19 [History] Past Medical History HEENT History: Reports: None Cardiovascular History: Reports: High Cholesterol, Hypertension, Syncope Respiratory History: Reports: None Gastrointestinal History: Reports: None Genitourinary History: Reports: None Musculoskeletal History: Reports: Fracture Neurological History: Reports: None Psychiatric History: Reports: Anxiety, Depression, PTSD, Other (See Below) Other Psychiatric History: borderline personality disorder Endocrine/Metabolic History: Reports: Diabetes, Type II, Obesity/BMI 30+ Hematologic History: Reports: None Immunologic History: Reports: None Oncologic (Cancer) History: Reports: None Dermatologic History: Reports: None - Infectious Disease History Infectious Disease History: Reports: Chicken Pox - Past Surgical History Head Surgeries/Procedures: Reports: None HEENT Surgical History: Reports: None GI Surgical History: Reports: None Male Surgical History: Reports: None Neurological Surgical History: Reports: None Musculoskeletal Surgical History: Reports: Other (See Below) Other Musculoskeletal Surgeries/Procedures:: left foot surgery Oncologic Surgical History: Reports: None Social & Family History - Family History Family Medical History: Noncontributory - Tobacco Use Smoking Status *Q: Never Smoker - Caffeine Use Caffeine Use: Reports: Soda - Living Situation & Occupation Living situation: Reports: with Family Occupation: Disabled ED ROS GENERAL - Review of Systems Review Of Systems: Comprehensive ROS is negative, except as noted in HPI. Constitutional: Reports: Fever, Malaise, Diaphoresis, Decreased Appetite HEENT: Reports: Sinus Problem, Vertigo Respiratory: Reports: Cough Cardiovascular: Reports: Chest Pain, Lightheadedness Musculoskeletal: Reports: Joint Pain, Muscle Pain Skin: Reports: No Symptoms Neurological: Reports: Headache ED EXAM, GENERAL - Physical Exam Exam: See Below Exam Limited By: No Limitations General Appearance: Alert, Anxious, Mild Distress Eye Exam: Bilateral Eye: EOMI Ears: Normal External Exam, Normal TMs Ear Exam: Bilateral Ear: TM Dull Nose: Normal Inspection Throat/Mouth: Normal Inspection Head: Atraumatic, Normocephalic Neck: Normal Inspection Respiratory/Chest: No Respiratory Distress, Lungs Clear, Normal Breath Sounds Cardiovascular: Normal Peripheral Pulses, Regular Rate, Rhythm, Tachycardia GI/Abdominal: Normal Bowel Sounds, Soft, Non-Tender Back Exam: Full Range of Motion Extremities: Normal Inspection, Normal Range of Motion Neurological: Alert, Oriented, Normal Cognition Psychiatric: Normal Mood, Anxious Skin Exam: Warm, Dry, Intact, Normal Color, Diaphoretic Course - Vital Signs Last Recorded V/S: Last Vital Signs Temp 99.4 F 04/19/19 13:31 Pulse 115 H 04/19/19 13:31 Resp 20 04/19/19 13:31 BP 121/75 04/19/19 13:31 Pulse Ox 97 04/19/19 13:31 Departure - Departure Time of Disposition: 14:11 Disposition: Home, Self-Care 01 Condition: Good Clinical Impression: Influenza A - Discharge Information *PRESCRIPTION DRUG MONITORING PROGRAM REVIEWED*: No *COPY OF PRESCRIPTION DRUG MONITORING REPORT IN PATIENT SHIRIN: No Instructions: Influenza, Adult, [id number], Cough, Adult, [id number] Referrals: Maryellen Salgado NP [Primary Care Provider] - Forms: ED Department Discharge Additional Instructions: light diet encourage liquids alternate tylenol 650mg and ibuprofen 400mg every 4 hours as needed for fever/ discomfort rest avoid exposure to others frequent hand washing OTC cough and could medications per label instructions Sepsis Event Note - Evaluation Sepsis Screening Result: No Definite Risk - Focused Exam Date Exam was Performed: 04/20/19 Time Exam was Performed: 15:23
== END 2019-04-19 14:24 | disposition home or self-care (01) ==
LOC: DL.ED 13:28
DX: J10.1 Influenza due to other identified influenza virus with other respiratory manifestations (principal); E11.9 Type 2 diabetes mellitus without complications; F41.9 Anxiety disorder, unspecified; F32.9 Major depressive disorder, single episode, unspecified; I10 Essential (primary) hypertension; E66.9 Obesity, unspecified; Z79.84 Long term (current) use of oral hypoglycemic drugs; Z79.899 Other long term (current) drug therapy; Z88.0 Allergy status to penicillin
CPT/HCPCS: 87081; 87430; 87804; 99282; 99284

== ENCOUNTER 2019-06-24 05:59 | Day surgery (SDC) | payer MEDICARE, MEDICAID ==
[2019-06-24] MEDS ORDERED: Sodium Chloride 0.9% 10 ML Syringe FLUSH PRN (06:00)
[2019-06-24] MEDS ORDERED: fentaNYL 100 MCG/2 ML SDV IV ONE ×3 (06:00→07:01)
[2019-06-24] MEDS ORDERED: Midazolam 1 MG/ML 2 ML SDV IV ONE ×5 (06:00→07:09)
[2019-06-24] MEDS ORDERED: Midazolam 1 MG/ML 2 ML SDV ONE (06:19)
[2019-06-24] MEDS ORDERED: fentaNYL 100 MCG/2 ML SDV ONE (06:19)
[2019-06-24] MEDS ORDERED: Dextrose 5%-0.45% NaCl 1,000 ML IV SCH (06:20)
--- NOTE | 2019-06-24 08:08 | OR ---
DATE: 06/24/2019 PROCEDURE: Total colonoscopy. INSTRUMENT USED: [id number] Olympus video colonoscope. PREMEDICATIONS: Fentanyl 100 mcg intravenous, Versed 3 mg intravenous. Nasal O2 cannula. The procedure was done under pulse oximetry, BP recording, and property assessment monitor. INDICATION: The patient with rectal bleeding. Colonoscopic examination is done for detection of any polypoid lesions and removal, endoscopic hemostasis therapy if needed. DESCRIPTION OF PROCEDURE: Initial rectal exam was unremarkable. Rigid anoscopy showed small hemorrhoids without bleeding from this. The colonoscope was passed with ease into the ileocecal area. Photographs were taken of the normal- appearing cecum identified by landmarks of appendiceal orifice and double-bulged ileocecal folds. No bleeding was noted from any of the visualized areas at the commencement of the examination. The bowel preparation was found to be adequate, [place] scale 2 regions, total score 6. No stricture. No vascular ectasia. No large isolated ulcerations seen. No evidence of diffuse inflammatory bowel disease in the form of friability, contact bleeding, or ulcerations. No polyp or tumor mass identified. Probing the proximal sides of folds and flexures using adequate distention and clearing up the stool material, withdrawal of the scope was made. Cecum to rectum time over 6 minutes. No bleeding was noted from any of the visualized areas at the completion of examination. IMPRESSION: Internal hemorrhoids. The patient tolerated the procedure well. [facility] /[id number]
== END 2019-06-24 09:35 | disposition home or self-care (01) ==
LOC: DL.ENDO 05:59
PROVIDERS: ATTEND Internal Medicine Gastroenterology
DX: K64.8 Other hemorrhoids (principal); K62.5 Hemorrhage of anus and rectum; E66.09 Other obesity due to excess calories; E11.9 Type 2 diabetes mellitus without complications; F41.1 Generalized anxiety disorder; F32.9 Major depressive disorder, single episode, unspecified; E78.5 Hyperlipidemia, unspecified; I10 Essential (primary) hypertension; M54.5 Low back pain; Z86.59 Personal history of other mental and behavioral disorders; Z68.38 Body mass index [BMI] 38.0-38.9, adult
CPT/HCPCS: 45378; J2250; J3010; J7042; G0121

== ENCOUNTER 2019-07-31 15:45 | Inpatient (IN) | payer MEDICARE, MEDICAID ==
[2019-07-31] MEDS ORDERED: Sodium Chloride 0.9% 10 ML Syringe FLUSH PRN (15:47)
[2019-07-31] MEDS ORDERED: Sodium Chloride 0.9% 1,000 ML IV ONE (15:47)
[2019-07-31] MEDS ORDERED: Ondansetron 4 MG/2 ML SDV IVPUSH ONE (16:17)
[2019-07-31 16:33] LABS: ANION GAP 17.2 mEq/L (7-13); CHLORIDE,CL 96 mmol/L (98-107); SODIUM,NA 133 mmol/L (136-145)
[2019-07-31] MEDS ORDERED: Sodium Chloride 0.9% 1,000 ML IV SCH (17:15)
[2019-07-31] MEDS ORDERED: Insulin Regular, Human 100 Units/ML 3 ML Vial IV ONE (18:57)
[2019-07-31] MEDS ORDERED: Calcium Gluconate 10% 1 GM/10 ML SDV IVPUSH ONE (18:57)
[2019-07-31] MEDS ORDERED: Ondansetron 4 MG Tab.DIS PO PRN (18:57)
[2019-07-31] MEDS ORDERED: Glucagon,Human Recombinant 1 MG Vial IM PRN (18:57)
[2019-07-31] MEDS ORDERED: Acetaminophen 325 MG Tab PO PRN (18:57)
[2019-07-31] MEDS ORDERED: Ondansetron 4 MG/2 ML SDV IVPUSH PRN (18:57)
[2019-07-31] MEDS ORDERED: 50% Dextrose in Water 50 ML Syringe IVPUSH PRN (18:57)
[2019-07-31] MEDS ORDERED: Sodium Polystyrene Sulfonate 15 GM/60 ML Susp 60 ML Bot PO ONE (18:57)
--- NOTE | 2019-07-31 19:35 | PCM.HP ---
H&P History of Present Illness - General Date of Service: 07/31/19 Admit Problem/Dx: Admission Diagnosis/Problem Admission Diagnosis/Problem Acute kidney injury Source of Information: Patient, Old Records - History of Present Illness Initial Comments - Free Text/Narative: Mr. Go is a 38-year-old male with medical history significant for nonischemic cardiomyopathy with EF of 40 to 45% on echocardiogram from 06/23/2019 , type 2 diabetes on oral medications, dyslipidemia, hypertension, Tourette syndrome, depression, borderline personality disorder, anxiety, and history of suicidal attempt in 2019 who presented to the ED with complaints of generalized malaise and elevated blood glucose and was found to have hyperkalemia and acute renal failure. Patient reports that he was his normal self today. Reports that he was helping a friend. They went to a bar where the friend was drinking but he was drinking water. States that he had been keeping hydrated because they were working in the heat. Reports that he felt nauseous and went to the bathroom and had a small amount of greenish emesis. States that he continued to feel unwell so went to home where he had a second episode of emesis, this time larger quantity. Denies any hematemesis. States that he went to take a shower thinking that that may make it feel better but felt lightheaded and also had chills after the shower. He wrapped himself in a blanket. Went to check his blood glucose and was greater than 400 so called the ED and he was asked to come into the emergency room. Reports that he had a small amount of urine today. Reports chronic constipation. Reports intermittent nonproductive cough. Denies any dysuria or hematuria. Denies any diarrhea, melena, hematochezia, edema, chest pain, shortness of breath, or any new symptoms. - Related Data Allergies/Adverse Reactions: Allergies Allergy/AdvReac Type Severity Reaction Status Date / Time Penicillins Allergy Rash Verified 07/31/19 15:50 bee stings Allergy Swelling Uncoded 07/31/19 15:50 Home Medications: Home Meds metFORMIN [Glucophage XR] 1,000 mg PO BIDMEALS 10/31/17 [History] Fenofibrate 160 mg PO DAILY 10/30/18 [History] Linagliptin [Tradjenta] 5 mg PO DAILY 10/30/18 [History] atorvaSTATin Calcium [Atorvastatin Calcium] 40 mg PO DAILY 10/30/18 [History] glipiZIDE [Glucotrol] 10 mg PO BID 10/30/18 [History] lamoTRIgine [Lamictal] 50 mg PO DAILY 01/23/19 [History] Aspirin [Aspirin EC] 81 mg PO DAILY 06/23/19 [History] Magnesium Oxide 400 mg PO BID 06/23/19 [History] Venlafaxine [Effexor XR] 225 mg PO DAILY 06/23/19 [History] Verapamil HCl [Calan Sr] 180 mg PO DAILY 06/23/19 [History] lisinopriL [Lisinopril] 40 mg PO DAILY 07/31/19 [History] Past Medical History HEENT History: Reports: Otitis Media Cardiovascular History: Reports: High Cholesterol, Hypertension, Syncope Respiratory History: Reports: Bronchitis, Recurrent Gastrointestinal History: Reports: Chronic Constipation, Chronic Diarrhea Genitourinary History: Reports: None Musculoskeletal History: Reports: Fracture Neurological History: Reports: Other (See Below) Other Neuro History: Tourette's syndrome Psychiatric History: Reports: ADHD, Anxiety, Depression, PTSD, Suicide Attempt, Other (See Below) Other Psychiatric History: borderline personality disorder, picking at skin Endocrine/Metabolic History: Reports: Diabetes, Type II, Obesity/BMI 30+ Hematologic History: Reports: None Immunologic History: Reports: None Oncologic (Cancer) History: Reports: None Dermatologic History: Reports: None - Infectious Disease History Infectious Disease History: Reports: Chicken Pox - Past Surgical History Head Surgeries/Procedures: Reports: None HEENT Surgical History: Reports: Myringotomy w Tube(s), Tonsillectomy Cardiovascular Surgical History: Reports: None GI Surgical History: Reports: None Male Surgical History: Reports: None Neurological Surgical History: Reports: None Musculoskeletal Surgical History: Reports: Other (See Below) Other Musculoskeletal Surgeries/Procedures:: left foot surgery Oncologic Surgical History: Reports: None Social & Family History - Family History Family Medical History: Noncontributory : Reports: Renal Disease/Insufficiency - Tobacco Use Smoking Status *Q: Former Smoker Used Tobacco, but Quit: Yes Month/Year Tobacco Last Used: 2014 Second Hand Smoke Exposure: No - Caffeine Use Caffeine Use: Reports: Coffee, Soda Caffeine Use Comment: 3 cans daily - Recreational Drug Use Recreational Drug Use: No - Living Situation & Occupation Living situation: Reports: with Family Occupation: Disabled H&P Review of Systems - Review of Systems: Review Of Systems: Comprehensive ROS is negative, except as noted in HPI. Exam - Exam Exam: See Below - Vital Signs Vital Signs: Last Vital Signs Temp 99.1 F 07/31/19 18:27 Pulse 99 07/31/19 18:27 Resp 18 07/31/19 18:27 BP 106/77 07/31/19 18:27 Pulse Ox 98 07/31/19 18:27 Weight: 294 lb 12.8 oz - Exam General: Alert, Oriented, Cooperative, Mild Distress HEENT: Conjunctiva Clear, EOMI, Hearing Intact, Mucosa Moist & [place] Neck: Supple, Trachea Midline Lungs: Clear to Auscultation, Normal Respiratory Effort Cardiovascular: Regular Rate, Regular Rhythm GI/Abdominal Exam: Normal Bowel Sounds, Soft, Non-Tender, No Distention Extremities: Normal Inspection, Non-Tender, No Pedal Edema, Normal Capillary Refill Skin: Warm, Dry, Intact Neuro Extensive - Mental Status: Alert, Oriented x3, Normal Mood/Affect, Normal Cognition, Memory Intact Psychiatric: Alert, Normal Affect, Normal Mood - Patient Data Lab Results Last 24 hrs: Laboratory Results - last 24 hr 07/31/19 07/31/19 07/31/19 Range/Units 06:01 06:01 06:01 WBC 13.5 H (5.0-10.0) 10^3/uL RBC 4.31 L (4.6-6.2) 10^6/uL Hgb 13.2 L (14.0-18.0) g/dL Hct 38.1 L (40.0-54.0) % MCV 88.4 (80-100) fL MCH 30.6 (27.0-34.0) pg MCHC 34.6 (33.0-35.0) g/dL Plt Count 272 (150-450) 10^3/uL Neut % (Auto) 74.8 (42.2-75.2) % Lymph % (Auto) 16.9 L (20.5-50.1) % [place] % (Auto) 7.7 (2-8) % Eos % (Auto) 0.4 L (1.0-3.0) % Baso % (Auto) 0.2 (0.0-1.0) % Sodium 133 L (136-145) mmol/L Potassium 5.2 H (3.5-5.1) mmol/L Chloride 96 L (98-107) mmol/L Carbon Dioxide 25 (21-32) mmol/L Anion Gap 17.2 H (7-13) mEq/L BUN 20 H (7-18) mg/dL Creatinine 2.64 H (0.70-1.30) mg/dL Est Cr Clr Drug Dosing 41.23 mL/min Estimated GFR (MDRD) 27 BUN/Creatinine Ratio 7.6 (No establ ref range) Glucose 329 H (74-99) mg/dL POC Glucose (70-105) mg/dl Lactic Acid 3.9 H* (0.4-2.0) mmol/L Calcium 9.8 (8.5-10.1) mg/dL Total Bilirubin 0.6 (0.2-1.0) mg/dL AST 31 (15-37) U/L ALT 51 (16-63) U/L Alkaline Phosphatase 57 (46-116) U/L Total Protein 7.7 (6.4-8.2) g/dL Albumin 4.5 (3.4-5.0) g/dL Globulin 3.2 Albumin/Globulin Ratio 1.4 Ethyl Alcohol < 3 (0) mg/dL Ketones Negative 07/31/19 Range/Units 16:37 WBC (5.0-10.0) 10^3/uL RBC (4.6-6.2) 10^6/uL Hgb (14.0-18.0) g/dL Hct (40.0-54.0) % MCV (80-100) fL MCH (27.0-34.0) pg MCHC (33.0-35.0) g/dL Plt Count (150-450) 10^3/uL Neut % (Auto) (42.2-75.2) % Lymph % (Auto) (20.5-50.1) % [place] % (Auto) (2-8) % Eos % (Auto) (1.0-3.0) % Baso % (Auto) (0.0-1.0) % Sodium (136-145) mmol/L Potassium (3.5-5.1) mmol/L Chloride (98-107) mmol/L Carbon Dioxide (21-32) mmol/L Anion Gap (7-13) mEq/L BUN (7-18) mg/dL Creatinine (0.70-1.30) mg/dL Est Cr Clr Drug Dosing mL/min Estimated GFR (MDRD) BUN/Creatinine Ratio (No establ ref range) Glucose (74-99) mg/dL POC Glucose 303 H (70-105) mg/dl Lactic Acid (0.4-2.0) mmol/L Calcium (8.5-10.1) mg/dL Total Bilirubin (0.2-1.0) mg/dL AST (15-37) U/L ALT (16-63) U/L Alkaline Phosphatase (46-116) U/L Total Protein (6.4-8.2) g/dL Albumin (3.4-5.0) g/dL Globulin Albumin/Globulin Ratio Ethyl Alcohol (0) mg/dL Ketones Result Diagrams: 07/31/19 06:01 07/31/19 06:01 - Problem List (1) Acute renal failure SNOMED Code(s): 78299944 ICD Code: N17.9 - ACUTE KIDNEY FAILURE, UNSPECIFIED Status: Acute Current Visit: Yes (2) Hyperglycemia SNOMED Code(s): 75449809 ICD Code: R73.9 - HYPERGLYCEMIA, UNSPECIFIED Status: Acute Current Visit : Yes (3) DM hyperosmolarity type II SNOMED Code(s): 88415905, 59742237 ICD Code: E11.00 - TYPE 2 DIAB W HYPROSM W/O NONKET HYPRGLY-HYPROS COMA ( [facility]) Status: Acute Current Visit: Yes (4) Sepsis SNOMED Code(s): 90284389 ICD Code: A41.9 - SEPSIS, UNSPECIFIED ORGANISM Status: Acute Current Visit: Yes (5) Lactic acidosis SNOMED Code(s): 27131134 ICD Code: E87.2 - ACIDOSIS Status: Acute Current Visit: Yes (6) CHF (congestive heart failure) SNOMED Code(s): 17526111 ICD Code: I50.9 - HEART FAILURE, UNSPECIFIED Status: Acute Current Visit : Yes (7) Depressive disorder SNOMED Code(s): 61370376 ICD Code: F32.9 - MAJOR DEPRESSIVE DISORDER, SINGLE EPISODE, UNSPECIFIED Status: Acute Current Visit: No Problem List Initiated/Reviewed/Updated: Yes Orders Last 24hrs: Active Orders 24 hr Category Date Time Status Admission Diagnosis [ADT] Stat ADT 07/31/19 17:35 Ordered Patient Status [ADT] Routine ADT 07/31/19 17:35 Active Blood Glucose Check, Bedside [RC] QIDACANDBED Care 07/31/19 18:57 Ordered Cardiac Monitoring [RC] CONTINUOUS Care 07/31/19 18:59 Ordered Diabetes Education [RC] Click to Edit Care 07/31/19 18:58 Ordered Intake and Output [RC] QSHIFT Care 07/31/19 18:59 Ordered Notify Provider [RC] PRN Care 07/31/19 18:58 Ordered Oxygen Therapy [RC] PRN Care 07/31/19 18:58 Ordered RT Aerosol Therapy [RC] ASDIRECTED Care 07/31/19 19:02 Ordered Up With Assistance [RC] ASDIRECTED Care 07/31/19 18:57 Ordered VTE/DVT Education [RC] PER UNIT ROUTINE Care 07/31/19 18:58 Ordered Vital Signs [RC] Q4H Care 07/31/19 18:58 Ordered Consistent Carbohydrate Diet [DIET] Diet 07/31/19 Dinner Ordered Chest 1V Frontal [CR] Routine Exams 07/31/19 19:21 Ordered BASIC METABOLIC PANEL,BMP [CHEM] AM Lab 08/01/19 05:11 Ordered BASIC METABOLIC PANEL,BMP [CHEM] Routine Lab 07/31/19 19:17 Ordered CBC W/O DIFF,HEMOGRAM [HEME] AM Lab 08/01/19 05:11 Ordered CULTURE BLOOD [BC] Stat Lab 07/31/19 17:00 Received CULTURE BLOOD [BC] Stat Lab 07/31/19 17:05 Received DRUG SCREEN URINE BIORAD [URCHEM] Stat Lab 07/31/19 15:47 Ordered LACTIC ACID [CHEM] Q4H Lab 07/31/19 18:57 Ordered LACTIC ACID [CHEM] Q4H Lab 07/31/19 22:57 Ordered MAGNESIUM [CHEM] AM Lab 08/01/19 05:11 Ordered PHOSPHORUS [CHEM] AM Lab 08/01/19 05:11 Ordered REFLEX LACTIC ACID YES OR NO [CHEM] Routine Lab 07/31/19 16:49 Received UA RFX JOAN AND CULT IF INDIC [URIN] Stat Lab 07/31/19 15:47 Ordered Acetaminophen [Tylenol] Med 07/31/19 18:57 Ordered 650 mg PO Q6H PRN Albuterol [Proventil Neb Soln] Med 07/31/19 19:00 Ordered 2.5 mg NEB Q2H Aspirin [Halfprin] Med 08/01/19 09:00 Ordered 81 mg PO DAILY Calcium Gluconate Med 07/31/19 18:57 Once 1 gm IVPUSH ONETIME ONE Dextrose 50% in Water Med 07/31/19 18:57 Ordered 25 ml IVPUSH ASDIRECTED PRN Docusate Sodium/Sennosides [Senna Plus] Med 07/31/19 18:57 Ordered 1 tab PO BEDTIME PRN Fenofibrate [Fenofibrate] Med 08/01/19 09:00 Ordered 160 mg PO DAILY Glucagon,Human Recombinant [GlucaGen] Med 07/31/19 18:57 Ordered 1 mg IM ONETIME PRN Heparin Sodium Med 07/31/19 22:00 Ordered 5,000 units SUBCUT Q8HR Insulin Lispro [HumaLOG] Med 07/31/19 21:00 Ordered See Protocol SUBCUT WITHMEALSANDBED Insulin Regular, Human [HumuLIN R] Med 07/31/19 18:57 Once 10 unit IV ONETIME ONE Magnesium Oxide [Magnesium Oxide] Med 07/31/19 21:00 Ordered 400 mg PO BID Ondansetron [Zofran ODT] Med 07/31/19 18:57 Ordered 4 mg PO Q6H PRN Ondansetron [Zofran] Med 07/31/19 18:57 Ordered 4 mg IVPUSH Q6H PRN Pharmacy to Dose - Vancomycin Med 07/31/19 19:30 Ordered 1 dose .XX ASDIRECTED Sodium Chloride 0.9% @ 125 MLS/HR (1000ml) Med 07/31/19 19:00 Ordered Sodium Chloride 0.9% [Normal Saline] 1,000 ml IV ASDIRECTED Sodium Chloride 0.9% [Normal Saline] 1,000 ml Med 07/31/19 17:15 Active IV ASDIRECTED Sodium Chloride 0.9% [Saline Flush] Med 07/31/19 15:47 Active 10 ml FLUSH ASDIRECTED PRN Sodium Polystyrene Sulfonate [Kayexalate] Med 07/31/19 18:57 Once 15 gm PO ONETIME ONE Venlafaxine [Effexor XR] Med 08/01/19 09:00 Ordered 225 mg PO DAILY Verapamil [Calan SR] Med 08/01/19 09:00 Ordered 180 mg PO DAILY atorvaSTATin Calcium [Atorvastatin Calcium] Med 08/01/19 09:00 Ordered 40 mg PO DAILY cefTRIAXone [Rocephin] 1 gm Med 07/31/19 19:30 Ordered Sodium Chloride 0.9% [Normal Saline] 50 ml IV Q24H lamoTRIgine [Lamictal] Med 08/01/19 09:00 Ordered 50 mg PO DAILY Blood Culture x2 Reflex Set [OM.PC] Stat Oth 07/31/19 16:51 Ordered Peripheral IV Insertion Adult [OM.PC] Stat Oth 07/31/19 15:46 Ordered Resuscitation Status Routine Resus Stat 07/31/19 18:57 Ordered Medication Orders Acetaminophen (Tylenol) 650 mg PO Q6H PRN PRN Reason: Pain (Mild 1-3)/fever Albuterol (Proventil Neb Soln) 2.5 mg NEB Q2H [facility] Stop: 07/31/19 21:01 Aspirin (Halfprin) 81 mg PO DAILY [facility] Calcium Gluconate (Calcium Gluconate) 1 gm IVPUSH ONETIME ONE Stop: 07/31/19 18:58 Dextrose/Water (Dextrose 50% In Water) 25 ml IVPUSH ASDIRECTED PRN PRN Reason: Hypoglycemia Glucagon (Glucagen) 1 mg IM ONETIME PRN PRN Reason: Hypoglycemia Heparin Sodium (Porcine) (Heparin Sodium) 5,000 units SUBCUT Q8HR [facility] Sodium Chloride (Normal Saline) 1,000 mls @ 999 mls/hr IV ASDIRECTED [facility] Last Admin: 07/31/19 17:14 Dose: 999 mls/hr Sodium Chloride (Normal Saline) 1,000 mls @ 125 mls/hr IV ASDIRECTED [facility] Ceftriaxone Sodium 1 gm/ (Sodium Chloride) 50 mls @ 100 mls/hr IV Q24H [facility] Insulin Human Lispro (Humalog) 0 unit SUBCUT WITHMEALSANDBED [facility]; Protocol Insulin Human Regular (Humulin R) 10 unit IV ONETIME ONE Stop: 07/31/19 18:58 Non-Formulary Medication (Atorvastatin Calcium [Atorvastatin Calcium]) 40 mg PO DAILY [facility] Non-Formulary Medication (Fenofibrate [Fenofibrate]) 160 mg PO DAILY [facility] Non-Formulary Medication (Lamotrigine [Lamictal]) 50 mg PO DAILY [facility] Non-Formulary Medication (Magnesium Oxide [Magnesium Oxide]) 400 mg PO BID [facility] Non-Formulary Medication (Venlafaxine [Effexor Xr]) 225 mg PO DAILY [facility] Ondansetron HCl (Zofran Odt) 4 mg PO Q6H PRN PRN Reason: nausea, able to take PO Ondansetron HCl (Zofran) 4 mg IVPUSH Q6H PRN PRN Reason: Nausea/Vomiting Senna/Docusate Sodium (Senna Plus) 1 tab PO BEDTIME PRN PRN Reason: Constipation Sodium Chloride (Saline Flush) 10 ml FLUSH ASDIRECTED PRN PRN Reason: Keep Vein Open Last Admin: 07/31/19 16:05 Dose: 10 ml Sodium Polystyrene Sulfonate (Kayexalate) 15 gm PO ONETIME ONE Stop: 07/31/19 18:58 Vancomycin HCl (Pharmacy To Dose - Vancomycin) 1 dose .XX ASDIRECTED [facility] Verapamil HCl (Calan Sr) 180 mg PO DAILY [facility] Assessment/Plan Comment:: #Acute renal failure #Hyperkalemia: Patient presented to the ED with complaints of hyper glycemia and generalized weakness. Was found to have creatinine of 2.64, with associated anion gap of 17.2 and hyperkalemia, potassium of 5.2. Has received 2 L of IV fluids in the ED Start normal saline at 125 cc. Repeat renal function Give 1 amp of calcium gluconate, 10 units of regular insulin, as albuterol, and Kayexalate Monitor potassium levels Avoid nephrotoxins Renal dosing of medications Telemonitoring #Lactic acidosis #Sepsis: Unspecified organism. Patient with tachycardia, heart rate of 100, respiratory rate of 20, and temperature of 100.8 on presentation. With associated lactic acidosis, lactic acid of 3.9 Follow-up on blood cultures Repeat lactic acid Obtain UA Checks x-ray Start vancomycin and Rocephin #Type 2 diabetes #Hyperglycemia Hold oral diabetes medications Sliding scale insulin and hypoglycemia protocol Check hemoglobin A1c #Heart failure with reduced ejection fraction Patient with EF of 40 to 45% on echocardiogram from 06/23/2019 Daily weights Patient reports shortness of breath, give 40 mEq of IV Continue aspirin and Lipitor #Hypertension: Hold lisinopril Continue verapamil #Anxiety and depression: Continue Effexor DVT PPx: Heparin GI PPx: Diabetic diet Code Status: Full Code
--- NOTE | 2019-07-31 19:51 | CR ---
PROCEDURE INFORMATION: Exam: XR Chest, 1 View Exam date and time: 07/31/2019 7:45 PM Age: 38 years old Clinical indication: Cough; Additional info: Cough, sepsis TECHNIQUE: Imaging protocol: XR of the chest Views: 1 view. COMPARISON: CR Chest 1V Frontal 03/25/2019 6:12 PM FINDINGS: Lungs: Unremarkable. No consolidation. Pleural space: Unremarkable. No pleural effusion. No pneumothorax. Heart/Mediastinum: Unremarkable. No cardiomegaly. Bones/joints: Unremarkable. IMPRESSION: No acute findings.
[2019-07-31 20:00] LABS: ANION GAP 18.3 mEq/L (7-13); HEMOGLOBIN A1C 8.5 % (<5.7)
[2019-07-31] MEDS: Albuterol 0.083% 2.5 MG/3 ML Neb Soln NEB SCH ×2 (20:18→21:21)
[2019-07-31] MEDS: Sodium Chloride 0.9% 1,000 ML IV SCH (20:20)
[2019-07-31] MEDS: cefTRIAXone 1 GM in Sodium Chloride 0.9% 50 ML IV SCH (20:24)
[2019-07-31] MEDS: Insulin Lispro 100 Units/ML 3 ML Vial SUBCUT SCH (21:19)
[2019-07-31] MEDS: Vancomycin 2 GM in Sodium Chloride 0.9% 500 ML IV SCH (21:25)
[2019-07-31] MEDS: Heparin Sodium 5,000 Units/ML Vial SUBCUT SCH (22:13)
[2019-08-01] MEDS: Heparin Sodium 5,000 Units/ML Vial SUBCUT SCH ×3 (05:35→21:01)
[2019-08-01 06:14] LABS: ANION GAP 13.2 mEq/L (7-13)
[2019-08-01] MEDS: Sodium Chloride 0.9% 1,000 ML IV SCH ×3 (06:51→23:09)
--- NOTE | 2019-08-01 07:53 | EDM.PDOC ---
Scribed by Harini Grant 08/01/19 0753 for Solange Chen NP ED HPI GENERAL MEDICAL PROBLEM - General Chief Complaint: Abdominal Pain Stated Complaint: CANNOT KEEP ANYTHING DOWN/HIGH BLOOD SUGAR Time Seen by Provider: 07/31/19 16:09 Source of Information: Reports: Patient, RN, RN Notes Reviewed History Limitations: Reports: No Limitations - History of Present Illness INITIAL COMMENTS - FREE TEXT/NARRATIVE: Patient presents to ER with complaint of nausea and vomiting. States he has been working in the sun all day. States he began vomiting, tried to cool down. Began feeling chills. States he is a DMII--not on insulin--does not check blood sugar often. Checked it today and it was 407 and 391. Unable to keep anything down. He has dizziness, lightheadedness, tired, weak, nausea, vomiting and fever. No diarrhea or chest pain. Onset: Today Duration: Getting Worse Location: Reports: Abdomen Quality: Reports: Ache Severity: Moderate Improves with: Reports: None Worsens with: Reports: None Associated Symptoms: Reports: No Other Symptoms - Related Data Allergies Allergy/AdvReac Type Severity Reaction Status Date / Time Penicillins Allergy Rash Verified 07/31/19 15:50 bee stings Allergy Swelling Uncoded 07/31/19 15:50 Home Meds: Home Meds metFORMIN [Glucophage XR] 1,000 mg PO BIDMEALS 10/31/17 [History] Fenofibrate 160 mg PO DAILY 10/30/18 [History] Linagliptin [Tradjenta] 5 mg PO DAILY 10/30/18 [History] atorvaSTATin Calcium [Atorvastatin Calcium] 40 mg PO DAILY 10/30/18 [History] glipiZIDE [Glucotrol] 10 mg PO BID 10/30/18 [History] lamoTRIgine [Lamictal] 50 mg PO DAILY 01/23/19 [History] Aspirin [Aspirin EC] 81 mg PO DAILY 06/23/19 [History] Magnesium Oxide 400 mg PO BID 06/23/19 [History] Venlafaxine [Effexor XR] 225 mg PO DAILY 06/23/19 [History] Verapamil HCl [Calan Sr] 180 mg PO DAILY 06/23/19 [History] lisinopriL [Lisinopril] 40 mg PO DAILY 07/31/19 [History] Past Medical History HEENT History: Reports: Otitis Media Cardiovascular History: Reports: High Cholesterol, Hypertension, Syncope Respiratory History: Reports: Bronchitis, Recurrent Gastrointestinal History: Reports: Chronic Constipation, Chronic Diarrhea Genitourinary History: Reports: None Musculoskeletal History: Reports: Fracture Neurological History: Reports: Other (See Below) Other Neuro History: Tourette's syndrome Psychiatric History: Reports: Anxiety, Depression, PTSD, Other (See Below) Other Psychiatric History: borderline personality disorder Endocrine/Metabolic History: Reports: Diabetes, Type II, Obesity/BMI 30+ Hematologic History: Reports: None Immunologic History: Reports: None Oncologic (Cancer) History: Reports: None Dermatologic History: Reports: None - Infectious Disease History Infectious Disease History: Reports: Chicken Pox - Past Surgical History Head Surgeries/Procedures: Reports: None HEENT Surgical History: Reports: Myringotomy w Tube(s), Tonsillectomy Cardiovascular Surgical History: Reports: None GI Surgical History: Reports: None Male Surgical History: Reports: None Neurological Surgical History: Reports: None Musculoskeletal Surgical History: Reports: Other (See Below) Other Musculoskeletal Surgeries/Procedures:: left foot surgery Oncologic Surgical History: Reports: None Social & Family History - Family History Family Medical History: Noncontributory - Caffeine Use Caffeine Use: Reports: Soda Caffeine Use Comment: 3 cans daily - Living Situation & Occupation Living situation: Reports: with Family Occupation: Disabled ED ROS GENERAL - Review of Systems Review Of Systems: Comprehensive ROS is negative, except as noted in HPI. ED EXAM, GENERAL - Physical Exam Exam: See Below Exam Limited By: No Limitations General Appearance: Alert, WD/WN, No Apparent Distress Eye Exam: Bilateral Eye: EOMI, Normal Inspection Ears: Normal External Exam, Hearing Grossly Normal Nose: Normal Inspection Throat/Mouth: Normal Inspection, Normal Voice, No Airway Compromise Head: Atraumatic, Normocephalic Neck: Normal Inspection, Supple, Non-Tender, Full Range of Motion Respiratory/Chest: No Respiratory Distress, Lungs Clear, Normal Breath Sounds, No Accessory Muscle Use, Chest Non-Tender Cardiovascular: Normal Peripheral Pulses, Regular Rate, Rhythm, No Edema, No Gallop, No JVD, No Murmur, No Rub Peripheral Pulses: 2+: Radial (L), Radial (R) GI/Abdominal: Normal Bowel Sounds, Soft, Non-Tender (Male) Exam: Deferred Rectal (Males) Exam: Deferred Back Exam: Normal Inspection, Full Range of Motion, NT Extremities: Normal Inspection, Normal Range of Motion, Non-Tender, Normal Capillary Refill, No Pedal Edema Neurological: Alert, Oriented, CN II-XII Intact, Normal Cognition, Normal Gait, Normal Reflexes, No Motor/Sensory Deficits Psychiatric: Normal Affect, Normal Mood Skin Exam: Warm, Dry, Other (face flushed) Lymphatic: No Adenopathy Course - Vital Signs Last Recorded V/S: Last Vital Signs Temp 97.4 F 08/01/19 04:00 Pulse 79 08/01/19 04:00 Resp 18 08/01/19 04:00 BP 123/74 08/01/19 04:00 Pulse Ox 97 08/01/19 04:00 - Orders/Labs/Meds Orders: Active Orders 24 hr Category Date Time Status CULTURE BLOOD [BC] Stat Lab 07/31/19 17:00 Received CULTURE BLOOD [BC] Stat Lab 07/31/19 17:05 Received Sodium Chloride 0.9% [Normal Saline] 1,000 ml Med 07/31/19 17:15 Active IV ASDIRECTED Sodium Chloride 0.9% [Saline Flush] Med 07/31/19 15:47 Active 10 ml FLUSH ASDIRECTED PRN Blood Culture x2 Reflex Set [OM.PC] Stat Oth 07/31/19 16:51 Ordered Peripheral IV Insertion Adult [OM.PC] Stat Oth 07/31/19 15:46 Ordered Medication Orders Acetaminophen (Tylenol) 650 mg PO Q6H PRN PRN Reason: Pain (Mild 1-3)/fever Aspirin (Halfprin) 81 mg PO DAILY [facility] Atorvastatin Calcium (Lipitor) 40 mg PO DAILY [facility] Dextrose/Water (Dextrose 50% In Water) 25 ml IVPUSH ASDIRECTED PRN PRN Reason: Hypoglycemia Glucagon (Glucagen) 1 mg IM ONETIME PRN PRN Reason: Hypoglycemia Heparin Sodium (Porcine) (Heparin Sodium) 5,000 units SUBCUT Q8HR [facility] Last Admin: 08/01/19 05:35 Dose: 5,000 units Admin: 07/31/19 22:13 Dose: 5,000 units Sodium Chloride (Normal Saline) 1,000 mls @ 999 mls/hr IV ASDIRECTED [facility] Last Admin: 07/31/19 17:14 Dose: 999 mls/hr Sodium Chloride (Normal Saline) 1,000 mls @ 125 mls/hr IV ASDIRECTED [facility] Last Admin: 08/01/19 06:51 Dose: 125 mls/hr Infusion: 08/01/19 04:20 Dose: 125 mls/hr Admin: 07/31/19 20:20 Dose: 125 mls/hr Ceftriaxone Sodium 1 gm/ (Sodium Chloride) 50 mls @ 100 mls/hr IV Q24H [facility] Last Admin: 07/31/19 20:24 Dose: 100 mls/hr Vancomycin HCl 2 gm/ Sodium (Chloride) 500 mls @ 250 mls/hr IV Q24H [facility] Last Admin: 07/31/19 21:25 Dose: 250 mls/hr Insulin Human Lispro (Humalog) 0 unit SUBCUT WITHMEALSANDBED [facility]; Protocol Last Admin: 07/31/19 21:19 Dose: Not Given Lamotrigine (Lamotrigine) 50 mg PO DAILY [facility] Magnesium Oxide (Magnesium Oxide) 500 mg PO BID [facility] Last Admin: 07/31/19 21:20 Dose: 500 mg Non-Formulary Medication (Fenofibrate [Fenofibrate]) 160 mg PO DAILY [facility] Ondansetron HCl (Zofran Odt) 4 mg PO Q6H PRN PRN Reason: nausea, able to take PO Ondansetron HCl (Zofran) 4 mg IVPUSH Q6H PRN PRN Reason: Nausea/Vomiting Senna/Docusate Sodium (Senna Plus) 1 tab PO BEDTIME PRN PRN Reason: Constipation Sodium Chloride (Saline Flush) 10 ml FLUSH ASDIRECTED PRN PRN Reason: Keep Vein Open Last Admin: 07/31/19 16:05 Dose: 10 ml Vancomycin HCl (Pharmacy To Dose - Vancomycin) 1 dose .XX ASDIRECTED [facility] Venlafaxine HCl (Effexor Xr) 225 mg PO DAILY [facility] Verapamil HCl (Calan Sr) 180 mg PO DAILY [facility] Labs: Laboratory Tests 07/31/19 07/31/19 07/31/19 Range/Units 06:01 06:01 06:01 WBC 13.5 H (5.0-10.0) 10^3/uL RBC 4.31 L (4.6-6.2) 10^6/uL Hgb 13.2 L (14.0-18.0) g/dL Hct 38.1 L (40.0-54.0) % MCV 88.4 (80-100) fL MCH 30.6 (27.0-34.0) pg MCHC 34.6 (33.0-35.0) g/dL Plt Count 272 (150-450) 10^3/uL Neut % (Auto) 74.8 (42.2-75.2) % Lymph % (Auto) 16.9 L (20.5-50.1) % Vance % (Auto) 7.7 (2-8) % Eos % (Auto) 0.4 L (1.0-3.0) % Baso % (Auto) 0.2 (0.0-1.0) % Sodium 133 L (136-145) mmol/L Potassium 5.2 H (3.5-5.1) mmol/L Chloride 96 L (98-107) mmol/L Carbon Dioxide 25 (21-32) mmol/L Anion Gap 17.2 H (7-13) mEq/L BUN 20 H (7-18) mg/dL Creatinine 2.64 H (0.70-1.30) mg/dL Est Cr Clr Drug Dosing 41.23 mL/min Estimated GFR (MDRD) 27 BUN/Creatinine Ratio 7.6 (No establ ref range) Glucose 329 H (74-99) mg/dL POC Glucose (70-105) mg/dl Lactic Acid 3.9 H* (0.4-2.0) mmol/L Calcium 9.8 (8.5-10.1) mg/dL Total Bilirubin 0.6 (0.2-1.0) mg/dL AST 31 (15-37) U/L ALT 51 (16-63) U/L Alkaline Phosphatase 57 (46-116) U/L Total Protein 7.7 (6.4-8.2) g/dL Albumin 4.5 (3.4-5.0) g/dL Globulin 3.2 Albumin/Globulin Ratio 1.4 Ethyl Alcohol < 3 (0) mg/dL Ketones Negative 07/31/19 Range/Units 16:37 WBC (5.0-10.0) 10^3/uL RBC (4.6-6.2) 10^6/uL Hgb (14.0-18.0) g/dL Hct (40.0-54.0) % MCV (80-100) fL MCH (27.0-34.0) pg MCHC (33.0-35.0) g/dL Plt Count (150-450) 10^3/uL Neut % (Auto) (42.2-75.2) % Lymph % (Auto) (20.5-50.1) % Vance % (Auto) (2-8) % Eos % (Auto) (1.0-3.0) % Baso % (Auto) (0.0-1.0) % Sodium (136-145) mmol/L Potassium (3.5-5.1) mmol/L Chloride (98-107) mmol/L Carbon Dioxide (21-32) mmol/L Anion Gap (7-13) mEq/L BUN (7-18) mg/dL Creatinine (0.70-1.30) mg/dL Est Cr Clr Drug Dosing mL/min Estimated GFR (MDRD) BUN/Creatinine Ratio (No establ ref range) Glucose (74-99) mg/dL POC Glucose 303 H (70-105) mg/dl Lactic Acid (0.4-2.0) mmol/L Calcium (8.5-10.1) mg/dL Total Bilirubin (0.2-1.0) mg/dL AST (15-37) U/L ALT (16-63) U/L Alkaline Phosphatase (46-116) U/L Total Protein (6.4-8.2) g/dL Albumin (3.4-5.0) g/dL Globulin Albumin/Globulin Ratio Ethyl Alcohol (0) mg/dL Ketones Meds: Medications Generic Name Dose Route Start Last Admin Trade Name Freq PRN Reason Stop Dose Admin Acetaminophen 650 mg 07/31/19 18:57 Tylenol PO Q6H PRN Pain (Mild 1-3)/fever Aspirin 81 mg 08/01/19 09:00 Halfprin PO DAILY [facility] Atorvastatin Calcium 40 mg 08/01/19 09:00 Lipitor PO DAILY [facility] Dextrose/Water 25 ml 07/31/19 18:57 Dextrose 50% In Water IVPUSH ASDIRECTED PRN Hypoglycemia Glucagon 1 mg 07/31/19 18:57 Glucagen IM ONETIME PRN Hypoglycemia Heparin Sodium (Porcine) 5,000 units 07/31/19 22:00 08/01/19 05:35 Heparin Sodium SUBCUT 5,000 units Q8HR [facility] Administration Sodium Chloride 1,000 mls @ 999 mls/hr 07/31/19 17:15 07/31/19 17:14 Normal Saline IV 999 mls/hr ASDIRECTED [facility] Administration Sodium Chloride 1,000 mls @ 125 mls/hr 07/31/19 19:00 08/01/19 06:51 Normal Saline IV 125 mls/hr ASDIRECTED [facility] Administration Ceftriaxone Sodium 1 gm/ 50 mls @ 100 mls/hr 07/31/19 20:00 07/31/19 20:24 Sodium Chloride IV 100 mls/hr Q24H [facility] Administration Vancomycin HCl 2 gm/ Sodium 500 mls @ 250 mls/hr 07/31/19 21:00 07/31/19 21: 25 Chloride IV 250 mls/hr Q24H [facility] Administration Insulin Human Lispro 0 unit 07/31/19 21:00 07/31/19 21:19 Humalog SUBCUT Not Given WITHMEALSANDBED [facility] Protocol Lamotrigine 50 mg 08/01/19 09:00 Lamotrigine PO DAILY [facility] Magnesium Oxide 500 mg 07/31/19 21:00 07/31/19 21:20 Magnesium Oxide PO 500 mg BID [facility] Administration Non-Formulary Medication 160 mg 08/01/19 09:00 Fenofibrate [Fenofibrate] PO DAILY [facility] Ondansetron HCl 4 mg 07/31/19 18:57 Zofran Odt PO Q6H PRN nausea, able to take PO Ondansetron HCl 4 mg 07/31/19 18:57 Zofran IVPUSH Q6H PRN Nausea/Vomiting Senna/Docusate Sodium 1 tab 07/31/19 18:57 Senna Plus PO BEDTIME PRN Constipation Sodium Chloride 10 ml 07/31/19 15:47 07/31/19 16:05 Saline Flush FLUSH 10 ml ASDIRECTED PRN Administration Keep Vein Open Vancomycin HCl 1 dose 07/31/19 19:30 Pharmacy To Dose - Vancomycin .XX ASDIRECTED [facility] Venlafaxine HCl 225 mg 08/01/19 09:00 Effexor Xr PO DAILY [facility] Verapamil HCl 180 mg 08/01/19 09:00 Calan Sr PO DAILY [facility] Discontinued Medications Generic Name Dose Route Start Last Admin Trade Name Freq PRN Reason Stop Dose Admin Albuterol 2.5 mg 07/31/19 19:00 07/31/19 21:21 Proventil Neb Soln NEB 07/31/19 21:01 2.5 mg Q2H [facility] Administration Calcium Gluconate 1 gm 07/31/19 18:57 07/31/19 20:00 Calcium Gluconate IVPUSH 07/31/19 18:58 1 gm ONETIME ONE Administration Sodium Chloride 1,000 mls @ 999 mls/hr 07/31/19 15:47 07/31/19 16:08 Normal Saline IV 07/31/19 16:47 999 mls/hr .BOLUS ONE Administration Insulin Human Regular 10 unit 07/31/19 18:57 07/31/19 19:57 Humulin R IV 07/31/19 18:58 10 units ONETIME ONE Administration Ondansetron HCl 4 mg 07/31/19 16:17 07/31/19 16:24 Zofran IVPUSH 07/31/19 16:18 4 mg ONETIME ONE Administration Sodium Polystyrene Sulfonate 15 gm 07/31/19 18:57 07/31/19 20:18 Kayexalate PO 07/31/19 18:58 15 gm ONETIME ONE Administration - Re-Assessments/Exams Free Text/Narrative Re-Assessment/Exam: 08/01/19 07:51 Discussed patient case with Dr. Ruiz who agreed to admit the patient for observation admission Departure - Departure Time of Disposition: 17:53 Disposition: Refer to Observation Condition: Fair Clinical Impression: Acute kidney injury, Dehydration Diabetes type 2, uncontrolled Qualifiers: Glycemic state: with hyperglycemia Qualified Code(s): E11.65 - Type 2 diabetes mellitus with hyperglycemia - Discharge Information *PRESCRIPTION DRUG MONITORING PROGRAM REVIEWED*: No *COPY OF PRESCRIPTION DRUG MONITORING REPORT IN PATIENT SHIRIN: No - My Orders Last 24 Hours: My Active Orders 07/31/19 15:46 Peripheral IV Insertion Adult [OM.PC] Stat 07/31/19 15:47 Sodium Chloride 0.9% [Saline Flush] 10 ml FLUSH ASDIRECTED PRN 07/31/19 16:51 Blood Culture x2 Reflex Set [OM.PC] Stat 07/31/19 17:00 CULTURE BLOOD [BC] Stat 07/31/19 17:05 CULTURE BLOOD [BC] Stat 07/31/19 17:15 Sodium Chloride 0.9% [Normal Saline] 1,000 ml IV ASDIRECTED - Assessment/Plan Last 24 Hours: My Active Orders 07/31/19 15:46 Peripheral IV Insertion Adult [OM.PC] Stat 07/31/19 15:47 Sodium Chloride 0.9% [Saline Flush] 10 ml FLUSH ASDIRECTED PRN 07/31/19 16:51 Blood Culture x2 Reflex Set [OM.PC] Stat 07/31/19 17:00 CULTURE BLOOD [BC] Stat 07/31/19 17:05 CULTURE BLOOD [BC] Stat 07/31/19 17:15 Sodium Chloride 0.9% [Normal Saline] 1,000 ml IV ASDIRECTED I have read and agree with the documentation that has been completed regarding this visit. By signing this record, I attest that the documentation was completed in my physical presence and is an accurate record of the encounter.
[2019-08-01] MEDS: lamoTRIgine 100 MG Tab PO SCH (08:52)
[2019-08-01] MEDS: Verapamil 180 MG Tab.ER PO SCH (08:53)
[2019-08-01] MEDS: atorvaSTATin 20 MG Tab PO SCH (08:53)
[2019-08-01] MEDS: Aspirin 81 MG Tab.EC PO SCH (08:53)
[2019-08-01] MEDS: Venlafaxine 37.5 MG Cap.ER PO SCH (08:54)
[2019-08-01] MEDS: Insulin Lispro 100 Units/ML 3 ML Vial SUBCUT SCH ×4 (08:55→20:59)
--- NOTE | 2019-08-01 09:32 | PCM.PN ---
- General Info Date of Service: 08/01/19 Admission Dx/Problem (Free Text): Admission Diagnosis/Problem Admission Diagnosis/Problem Acute kidney injury Subjective Update: Potassium improved overnight. Reports he is feeling better but did not get enough sleep; woke up multiple times last night. He denies chest pains, shortness of breath, fevers, chills, nausea, vomiting, diarrhea, constipation, dysuria, hematuria, or any new symptoms. Has not had any bowel movement since presentation. - Patient Data Vitals - Most Recent: Last Vital Signs Temp 98.4 F 08/01/19 08:00 Pulse 82 08/01/19 08:00 Resp 16 08/01/19 08:00 BP 124/63 08/01/19 08:00 Pulse Ox 95 08/01/19 08:00 Weight - Most Recent: 294 lb 4 oz I&O - Last 24 Hours: Intake & Output 07/31/19 08/01/19 08/01/19 22:59 06:59 14:59 Intake Total 1553 250 Output Total 600 600 Balance -600 1553 -350 Lab Results Last 24 Hours: Laboratory Results - last 24 hr 07/31/19 07/31/19 07/31/19 Range/Units 16:01 16:01 16:01 WBC 13.5 H (5.0-10.0) 10^3/uL RBC 4.31 L (4.6-6.2) 10^6/uL Hgb 13.2 L (14.0-18.0) g/dL Hct 38.1 L (40.0-54.0) % MCV 88.4 (80-100) fL MCH 30.6 (27.0-34.0) pg MCHC 34.6 (33.0-35.0) g/dL Plt Count 272 (150-450) 10^3/uL Neut % (Auto) 74.8 (42.2-75.2) % Lymph % (Auto) 16.9 L (20.5-50.1) % Angelina % (Auto) 7.7 (2-8) % Eos % (Auto) 0.4 L (1.0-3.0) % Baso % (Auto) 0.2 (0.0-1.0) % Sodium 133 L (136-145) mmol/L Potassium 5.2 H (3.5-5.1) mmol/L Chloride 96 L (98-107) mmol/L Carbon Dioxide 25 (21-32) mmol/L Anion Gap 17.2 H (7-13) mEq/L BUN 20 H (7-18) mg/dL Creatinine 2.64 H (0.70-1.30) mg/dL Est Cr Clr Drug Dosing 41.23 mL/min Estimated GFR (MDRD) 27 BUN/Creatinine Ratio 7.6 (No establ ref range) Glucose 329 H (74-99) mg/dL POC Glucose (70-105) mg/dl Hemoglobin A1c (<5.7) % Lactic Acid 3.9 H* (0.4-2.0) mmol/L Calcium 9.8 (8.5-10.1) mg/dL Phosphorus (2.6-4.7) mg/dL Magnesium (1.8-2.4) mg/dL Total Bilirubin 0.6 (0.2-1.0) mg/dL AST 31 (15-37) U/L ALT 51 (16-63) U/L Alkaline Phosphatase 57 (46-116) U/L Total Protein 7.7 (6.4-8.2) g/dL Albumin 4.5 (3.4-5.0) g/dL Globulin 3.2 Albumin/Globulin Ratio 1.4 Urine Color (YELLOW) Urine Appearance (CLEAR) Urine pH (5.0-9.0) Ur Specific [place] (1.005-1.030) Urine Protein (NEGATIVE) Urine Glucose (UA) (NEGATIVE) Urine Ketones (NEGATIVE) Urine Occult Blood (NEGATIVE) Urine Nitrite (NEGATIVE) Urine Bilirubin (NEGATIVE) Urine Urobilinogen (0.2-1.0) mg/dL Ur Leukocyte Esterase (NEGATIVE) U Hyaline Cast (Auto) Urine RBC /HPF Urine WBC (0-5/HPF) /HPF Ur Epithelial Cells (NOT SEEN) /HPF Urine Bacteria (0-FEW/HPF) /HPF Urine Opiates Screen (NEGATIVE) Ur Oxycodone Screen (NEGATIVE) Urine Methadone Screen (NEGATIVE) Ur Barbiturates Screen (NEGATIVE) U Tricyclic Antidepress (NEGATIVE) Ur Phencyclidine Scrn (NEGATIVE) Ur Amphetamine Screen (NEGATIVE) U Methamphetamines Scrn (NEGATIVE) Urine MDMA Screen (NEGATIVE) U Benzodiazepines Scrn (NEGATIVE) Urine Cocaine Screen (NEGATIVE) U Marijuana (THC) Screen (NEGATIVE) Ethyl Alcohol < 3 (0) mg/dL Ketones Negative 07/31/19 07/31/19 07/31/19 Range/Units 16:37 19:35 19:35 WBC (5.0-10.0) 10^3/uL RBC (4.6-6.2) 10^6/uL Hgb (14.0-18.0) g/dL Hct (40.0-54.0) % MCV (80-100) fL MCH (27.0-34.0) pg MCHC (33.0-35.0) g/dL Plt Count (150-450) 10^3/uL Neut % (Auto) (42.2-75.2) % Lymph % (Auto) (20.5-50.1) % Angelina % (Auto) (2-8) % Eos % (Auto) (1.0-3.0) % Baso % (Auto) (0.0-1.0) % Sodium 136 (136-145) mmol/L Potassium 4.3 (3.5-5.1) mmol/L Chloride 100 (98-107) mmol/L Carbon Dioxide 22 (21-32) mmol/L Anion Gap 18.3 H (7-13) mEq/L BUN 20 H (7-18) mg/dL Creatinine 2.13 H (0.70-1.30) mg/dL Est Cr Clr Drug Dosing 51.11 mL/min Estimated GFR (MDRD) 35 BUN/Creatinine Ratio (No establ ref range) Glucose 186 H (74-99) mg/dL POC Glucose 303 H (70-105) mg/dl Hemoglobin A1c (<5.7) % Lactic Acid 2.4 H* (0.4-2.0) mmol/L Calcium 8.9 (8.5-10.1) mg/dL Phosphorus (2.6-4.7) mg/dL Magnesium (1.8-2.4) mg/dL Total Bilirubin (0.2-1.0) mg/dL AST (15-37) U/L ALT (16-63) U/L Alkaline Phosphatase (46-116) U/L Total Protein (6.4-8.2) g/dL Albumin (3.4-5.0) g/dL Globulin Albumin/Globulin Ratio Urine Color (YELLOW) Urine Appearance (CLEAR) Urine pH (5.0-9.0) Ur Specific [place] (1.005-1.030) Urine Protein (NEGATIVE) Urine Glucose (UA) (NEGATIVE) Urine Ketones (NEGATIVE) Urine Occult Blood (NEGATIVE) Urine Nitrite (NEGATIVE) Urine Bilirubin (NEGATIVE) Urine Urobilinogen (0.2-1.0) mg/dL Ur Leukocyte Esterase (NEGATIVE) U Hyaline Cast (Auto) Urine RBC /HPF Urine WBC (0-5/HPF) /HPF Ur Epithelial Cells (NOT SEEN) /HPF Urine Bacteria (0-FEW/HPF) /HPF Urine Opiates Screen (NEGATIVE) Ur Oxycodone Screen (NEGATIVE) Urine Methadone Screen (NEGATIVE) Ur Barbiturates Screen (NEGATIVE) U Tricyclic Antidepress (NEGATIVE) Ur Phencyclidine Scrn (NEGATIVE) Ur Amphetamine Screen (NEGATIVE) U Methamphetamines Scrn (NEGATIVE) Urine MDMA Screen (NEGATIVE) U Benzodiazepines Scrn (NEGATIVE) Urine Cocaine Screen (NEGATIVE) U Marijuana (THC) Screen (NEGATIVE) Ethyl Alcohol (0) mg/dL Ketones 07/31/19 07/31/19 07/31/19 Range/Units 19:35 20:29 20:44 WBC (5.0-10.0) 10^3/uL RBC (4.6-6.2) 10^6/uL Hgb (14.0-18.0) g/dL Hct (40.0-54.0) % MCV (80-100) fL MCH (27.0-34.0) pg MCHC (33.0-35.0) g/dL Plt Count (150-450) 10^3/uL Neut % (Auto) (42.2-75.2) % Lymph % (Auto) (20.5-50.1) % Angelina % (Auto) (2-8) % Eos % (Auto) (1.0-3.0) % Baso % (Auto) (0.0-1.0) % Sodium (136-145) mmol/L Potassium (3.5-5.1) mmol/L Chloride (98-107) mmol/L Carbon Dioxide (21-32) mmol/L Anion Gap (7-13) mEq/L BUN (7-18) mg/dL Creatinine (0.70-1.30) mg/dL Est Cr Clr Drug Dosing mL/min Estimated GFR (MDRD) BUN/Creatinine Ratio (No establ ref range) Glucose (74-99) mg/dL POC Glucose 122 H (70-105) mg/dl Hemoglobin A1c 8.5 H (<5.7) % Lactic Acid (0.4-2.0) mmol/L Calcium (8.5-10.1) mg/dL Phosphorus (2.6-4.7) mg/dL Magnesium (1.8-2.4) mg/dL Total Bilirubin (0.2-1.0) mg/dL AST (15-37) U/L ALT (16-63) U/L Alkaline Phosphatase (46-116) U/L Total Protein (6.4-8.2) g/dL Albumin (3.4-5.0) g/dL Globulin Albumin/Globulin Ratio Urine Color Yellow (YELLOW) Urine Appearance Clear (CLEAR) Urine pH 5.5 (5.0-9.0) Ur Specific [place] 1.020 (1.005-1.030) Urine Protein Negative (NEGATIVE) Urine Glucose (UA) 500 H (NEGATIVE) Urine Ketones Negative (NEGATIVE) Urine Occult Blood Trace-intact H (NEGATIVE) Urine Nitrite Negative (NEGATIVE) Urine Bilirubin Negative (NEGATIVE) Urine Urobilinogen 0.2 (0.2-1.0) mg/dL Ur Leukocyte Esterase Negative (NEGATIVE) U Hyaline Cast (Auto) Few Urine RBC 0-5 /HPF Urine WBC 0-5 (0-5/HPF) /HPF Ur Epithelial Cells Few (NOT SEEN) /HPF Urine Bacteria Few (0-FEW/HPF) /HPF Urine Opiates Screen (NEGATIVE) Ur Oxycodone Screen (NEGATIVE) Urine Methadone Screen (NEGATIVE) Ur Barbiturates Screen (NEGATIVE) U Tricyclic Antidepress (NEGATIVE) Ur Phencyclidine Scrn (NEGATIVE) Ur Amphetamine Screen (NEGATIVE) U Methamphetamines Scrn (NEGATIVE) Urine MDMA Screen (NEGATIVE) U Benzodiazepines Scrn (NEGATIVE) Urine Cocaine Screen (NEGATIVE) U Marijuana (THC) Screen (NEGATIVE) Ethyl Alcohol (0) mg/dL Ketones 07/31/19 07/31/19 08/01/19 Range/Units 20:44 23:35 05:40 WBC 8.9 (5.0-10.0) 10^3/uL RBC 3.96 L (4.6-6.2) 10^6/uL Hgb 12.2 L (14.0-18.0) g/dL Hct 35.9 L (40.0-54.0) % MCV 90.7 (80-100) fL MCH 30.8 (27.0-34.0) pg MCHC 34.0 (33.0-35.0) g/dL Plt Count 253 (150-450) 10^3/uL Neut % (Auto) (42.2-75.2) % Lymph % (Auto) (20.5-50.1) % Angelina % (Auto) (2-8) % Eos % (Auto) (1.0-3.0) % Baso % (Auto) (0.0-1.0) % Sodium (136-145) mmol/L Potassium (3.5-5.1) mmol/L Chloride (98-107) mmol/L Carbon Dioxide (21-32) mmol/L Anion Gap (7-13) mEq/L BUN (7-18) mg/dL Creatinine (0.70-1.30) mg/dL Est Cr Clr Drug Dosing mL/min Estimated GFR (MDRD) BUN/Creatinine Ratio (No establ ref range) Glucose (74-99) mg/dL POC Glucose (70-105) mg/dl Hemoglobin A1c (<5.7) % Lactic Acid 2.6 H* (0.4-2.0) mmol/L Calcium (8.5-10.1) mg/dL Phosphorus (2.6-4.7) mg/dL Magnesium (1.8-2.4) mg/dL Total Bilirubin (0.2-1.0) mg/dL AST (15-37) U/L ALT (16-63) U/L Alkaline Phosphatase (46-116) U/L Total Protein (6.4-8.2) g/dL Albumin (3.4-5.0) g/dL Globulin Albumin/Globulin Ratio Urine Color (YELLOW) Urine Appearance (CLEAR) Urine pH (5.0-9.0) Ur Specific [place] (1.005-1.030) Urine Protein (NEGATIVE) Urine Glucose (UA) (NEGATIVE) Urine Ketones (NEGATIVE) Urine Occult Blood (NEGATIVE) Urine Nitrite (NEGATIVE) Urine Bilirubin (NEGATIVE) Urine Urobilinogen (0.2-1.0) mg/dL Ur Leukocyte Esterase (NEGATIVE) U Hyaline Cast (Auto) Urine RBC /HPF Urine WBC (0-5/HPF) /HPF Ur Epithelial Cells (NOT SEEN) /HPF Urine Bacteria (0-FEW/HPF) /HPF Urine Opiates Screen Negative (NEGATIVE) Ur Oxycodone Screen Negative (NEGATIVE) Urine Methadone Screen Negative (NEGATIVE) Ur Barbiturates Screen Negative (NEGATIVE) U Tricyclic Antidepress Negative (NEGATIVE) Ur Phencyclidine Scrn Negative (NEGATIVE) Ur Amphetamine Screen Negative (NEGATIVE) U Methamphetamines Scrn Negative (NEGATIVE) Urine MDMA Screen Negative (NEGATIVE) U Benzodiazepines Scrn Negative (NEGATIVE) Urine Cocaine Screen Negative (NEGATIVE) U Marijuana (THC) Screen Negative (NEGATIVE) Ethyl Alcohol (0) mg/dL Ketones 08/01/19 08/01/19 08/01/19 Range/Units 05:40 05:40 07:50 WBC (5.0-10.0) 10^3/uL RBC (4.6-6.2) 10^6/uL Hgb (14.0-18.0) g/dL Hct (40.0-54.0) % MCV (80-100) fL MCH (27.0-34.0) pg MCHC (33.0-35.0) g/dL Plt Count (150-450) 10^3/uL Neut % (Auto) (42.2-75.2) % Lymph % (Auto) (20.5-50.1) % Angelina % (Auto) (2-8) % Eos % (Auto) (1.0-3.0) % Baso % (Auto) (0.0-1.0) % Sodium 141 (136-145) mmol/L Potassium 4.2 (3.5-5.1) mmol/L Chloride 104 (98-107) mmol/L Carbon Dioxide 28 (21-32) mmol/L Anion Gap 13.2 H (7-13) mEq/L BUN 18 (7-18) mg/dL Creatinine 1.73 H (0.70-1.30) mg/dL Est Cr Clr Drug Dosing 62.92 mL/min Estimated GFR (MDRD) 44 BUN/Creatinine Ratio (No establ ref range) Glucose 208 H (74-99) mg/dL POC Glucose 266 H (70-105) mg/dl Hemoglobin A1c (<5.7) % Lactic Acid 1.9 (0.4-2.0) mmol/L Calcium 8.6 (8.5-10.1) mg/dL Phosphorus 4.7 (2.6-4.7) mg/dL Magnesium 1.6 L (1.8-2.4) mg/dL Total Bilirubin (0.2-1.0) mg/dL AST (15-37) U/L ALT (16-63) U/L Alkaline Phosphatase (46-116) U/L Total Protein (6.4-8.2) g/dL Albumin (3.4-5.0) g/dL Globulin Albumin/Globulin Ratio Urine Color (YELLOW) Urine Appearance (CLEAR) Urine pH (5.0-9.0) Ur Specific [place] (1.005-1.030) Urine Protein (NEGATIVE) Urine Glucose (UA) (NEGATIVE) Urine Ketones (NEGATIVE) Urine Occult Blood (NEGATIVE) Urine Nitrite (NEGATIVE) Urine Bilirubin (NEGATIVE) Urine Urobilinogen (0.2-1.0) mg/dL Ur Leukocyte Esterase (NEGATIVE) U Hyaline Cast (Auto) Urine RBC /HPF Urine WBC (0-5/HPF) /HPF Ur Epithelial Cells (NOT SEEN) /HPF Urine Bacteria (0-FEW/HPF) /HPF Urine Opiates Screen (NEGATIVE) Ur Oxycodone Screen (NEGATIVE) Urine Methadone Screen (NEGATIVE) Ur Barbiturates Screen (NEGATIVE) U Tricyclic Antidepress (NEGATIVE) Ur Phencyclidine Scrn (NEGATIVE) Ur Amphetamine Screen (NEGATIVE) U Methamphetamines Scrn (NEGATIVE) Urine MDMA Screen (NEGATIVE) U Benzodiazepines Scrn (NEGATIVE) Urine Cocaine Screen (NEGATIVE) U Marijuana (THC) Screen (NEGATIVE) Ethyl Alcohol (0) mg/dL Ketones Med Orders - Current: Current Medications Acetaminophen (Tylenol) 650 mg PO Q6H PRN PRN Reason: Pain (Mild 1-3)/fever Aspirin (Halfprin) [address] [facility] Last Admin: 08/01/19 08:53 Dose: 81 mg Atorvastatin Calcium (Lipitor) [address] [facility] Last Admin: 08/01/19 08:53 Dose: 40 mg Dextrose/Water (Dextrose 50% In Water) 25 ml IVPUSH ASDIRECTED PRN PRN Reason: Hypoglycemia Fenofibrate (Tricor) [address] [facility] Glucagon (Glucagen) 1 mg IM ONETIME PRN PRN Reason: Hypoglycemia Heparin Sodium (Porcine) (Heparin Sodium) 5,[address] [facility] Last Admin: 08/01/19 05:35 Dose: 5,000 units Sodium Chloride (Normal Saline) 1,000 mls @ 125 mls/hr IV ASDIRECTED [facility] Last Admin: 08/01/19 06:51 Dose: 125 mls/hr Ceftriaxone Sodium 1 gm/ (Sodium Chloride) 50 mls @ 100 mls/hr IV Q24H [facility] Last Admin: 07/31/19 20:24 Dose: 100 mls/hr Vancomycin HCl 2 gm/ Sodium (Chloride) 500 mls @ 250 mls/hr IV Q24H [facility] Last Admin: 07/31/19 21:25 Dose: 250 mls/hr Insulin Human Lispro (Humalog) [address] [facility]; Protocol Last Admin: 08/01/19 08:55 Dose: 3 units Lamotrigine (Lamotrigine) [address] [facility] Last Admin: 08/01/19 08:52 Dose: 50 mg Magnesium Oxide (Magnesium Oxide) [address] [facility] Last Admin: 08/01/19 08:52 Dose: 500 mg Magnesium Oxide (Magnesium Oxide) [address] [facility] Stop: 08/01/19 21:01 Ondansetron HCl (Zofran Odt) 4 mg PO Q6H PRN PRN Reason: nausea, able to take PO Ondansetron HCl (Zofran) 4 mg IVPUSH Q6H PRN PRN Reason: Nausea/Vomiting Senna/Docusate Sodium (Senna Plus) 1 tab PO BEDTIME PRN PRN Reason: Constipation Sodium Chloride (Saline Flush) 10 ml FLUSH ASDIRECTED PRN PRN Reason: Keep Vein Open Last Admin: 07/31/19 16:05 Dose: 10 ml Vancomycin HCl (Pharmacy To Dose - Vancomycin) [address] [facility] Venlafaxine HCl (Effexor Xr) [address] [facility] Last Admin: 08/01/19 08:54 Dose: 225 mg Verapamil HCl (Calan Sr) [address] [facility] Last Admin: 08/01/19 08:53 Dose: 180 mg Discontinued Medications Albuterol (Proventil Neb Soln) 2.5 mg NEB Q2H [facility] Stop: 07/31/19 21:01 Last Admin: 07/31/19 21:21 Dose: 2.5 mg Calcium Gluconate (Calcium Gluconate) 1 gm IVPUSH ONETIME ONE Stop: 07/31/19 18:58 Last Admin: 07/31/19 20:00 Dose: 1 gm Sodium Chloride (Normal Saline) 1,000 mls @ 999 mls/hr IV .BOLUS ONE Stop: 07/31/19 16:47 Last Admin: 07/31/19 16:08 Dose: 999 mls/hr Sodium Chloride (Normal Saline) 1,000 mls @ 999 mls/hr IV ASDIRECTED [facility] Last Admin: 07/31/19 17:14 Dose: 999 mls/hr Insulin Human Regular (Humulin R) 10 unit IV ONETIME ONE Stop: 07/31/19 18:58 Last Admin: 07/31/19 19:57 Dose: 10 units Ondansetron HCl (Zofran) 4 mg IVPUSH ONETIME ONE Stop: 07/31/19 16:18 Last Admin: 07/31/19 16:24 Dose: 4 mg Sodium Polystyrene Sulfonate (Kayexalate) 15 gm PO ONETIME ONE Stop: 07/31/19 18:58 Last Admin: 07/31/19 20:18 Dose: 15 gm - Exam General: Alert, Oriented, Cooperative, No Acute Distress HEENT: Pupils Equal, Pupils Reactive, Mucous Membr. Moist/[place] Neck: Supple, Trachea Midline Lungs: Clear to Auscultation, Normal Respiratory Effort Cardiovascular: Regular Rate, Regular Rhythm GI/Abdominal Exam: Normal Bowel Sounds, Soft, Non-Tender, No Distention Extremities: Normal Inspection, Non-Tender, No Pedal Edema Skin: Warm, Dry, Intact Neurological: No New Focal Deficit Psy/Mental Status: Alert, Normal Affect, Normal Mood Sepsis Event Note - Evaluation Sepsis Screening Result: No Definite Risk - Focused Exam Vital Signs: Vital Signs Temp Pulse Resp BP Pulse Ox 08/01/19 08:00 98.4 F 82 16 124/63 95 08/01/19 04:00 97.4 F 79 18 123/74 97 08/01/19 00:00 98.4 F 84 18 134/73 95 Date Exam was Performed: 08/01/19 Time Exam was Performed: 09:26 - Problem List & Annotations (1) Acute renal failure SNOMED Code(s): 18616647 Code(s): N17.9 - ACUTE KIDNEY FAILURE, UNSPECIFIED Status: Acute Current Visit: Yes (2) Hyperglycemia SNOMED Code(s): 74200237 Code(s): R73.9 - HYPERGLYCEMIA, UNSPECIFIED Status: Acute Current Visit: Yes (3) DM hyperosmolarity type II SNOMED Code(s): 06357717, 54154754 Code(s): E11.00 - TYPE 2 DIAB W HYPROSM W/O NONKET HYPRGLY-HYPROS COMA (N[facility] ) Status: Acute Current Visit: Yes (4) Sepsis SNOMED Code(s): 02836653 Code(s): A41.9 - SEPSIS, UNSPECIFIED ORGANISM Status: Acute Current Visit : Yes (5) Lactic acidosis SNOMED Code(s): 44498002 Code(s): E87.2 - ACIDOSIS Status: Acute Current Visit: Yes (6) CHF (congestive heart failure) SNOMED Code(s): 35660165 Code(s): I50.9 - HEART FAILURE, UNSPECIFIED Status: Acute Current Visit: Yes (7) Depressive disorder SNOMED Code(s): 64268752 Code(s): F32.9 - MAJOR DEPRESSIVE DISORDER, SINGLE EPISODE, UNSPECIFIED Status: Acute Current Visit: No - Problem List Review Problem List Initiated/Reviewed/Updated: Yes - My Orders Last 24 Hours: My Active Orders 07/31/19 18:57 Blood Glucose Check, Bedside [RC] QIDACANDBED Up With Assistance [RC] ASDIRECTED Acetaminophen [Tylenol] 650 mg PO Q6H PRN Dextrose 50% in Water 25 ml IVPUSH ASDIRECTED PRN Docusate Sodium/Sennosides [Senna Plus] 1 tab PO BEDTIME PRN Glucagon,Human Recombinant [GlucaGen] 1 mg IM ONETIME PRN Ondansetron [Zofran ODT] 4 mg PO Q6H PRN Ondansetron [Zofran] 4 mg IVPUSH Q6H PRN Resuscitation Status Routine 07/31/19 18:58 Diabetes Education [RC] Click to Edit Notify Provider [RC] PRN Oxygen Therapy [RC] .PRN VTE/DVT Education [RC] PER UNIT ROUTINE Vital Signs [RC] Q4H 07/31/19 18:59 Cardiac Monitoring [RC] CONTINUOUS Intake and Output [RC] QSHIFT 07/31/19 19:00 Sodium Chloride 0.9% [Normal Saline] 1,000 ml IV ASDIRECTED 07/31/19 19:02 RT Aerosol Therapy [RC] ASDIRECTED 07/31/19 19:30 Pharmacy to Dose - Vancomycin 1 dose .XX ASDIRECTED 07/31/19 20:00 cefTRIAXone [Rocephin] 1 gm Sodium Chloride 0.9% [Normal Saline] 50 ml IV Q24H 07/31/19 21:00 Insulin Lispro [HumaLOG] See Protocol SUBCUT WITHMEALSANDBED Magnesium Oxide 500 mg PO BID Vancomycin 2 gm Sodium Chloride 0.9% [Normal Saline] 500 ml IV Q24H 07/31/19 22:00 Heparin Sodium 5,000 units SUBCUT Q8HR 07/31/19 Dinner Consistent Carbohydrate Diet [DIET] 08/01/19 09:00 Aspirin [Halfprin] 81 mg PO DAILY Fenofibrate Nanocrystallized [Tricor] 145 mg PO DAILY Magnesium Oxide 250 mg PO BID Venlafaxine [Effexor XR] 225 mg PO DAILY Verapamil [Calan SR] 180 mg PO DAILY atorvaSTATin [Lipitor] 40 mg PO DAILY lamoTRIgine 50 mg PO DAILY 08/02/19 05:11 BASIC METABOLIC PANEL,BMP [CHEM] AM MAGNESIUM [CHEM] AM - Plan Plan:: #Acute renal failure: Improving; Cr down to 1.7; was 2.6 on presentation. #Hyperkalemia: Patient presented to the ED with complaints of hyper glycemia and generalized weakness. Was found to have creatinine of 2.64, with associated anion gap of 17.2 and hyperkalemia, potassium of 5.2. Has received 2 L of IV fluids in the ED Continue IVF Monitor renal function Received 1 amp of calcium gluconate, 10 units of regular insulin, as albuterol, and Kayexalate Monitor potassium levels Avoid nephrotoxins Renal dosing of medications Telemonitoring #Lactic acidosis: Resolved. Lactic acid down to 1.9 #Sepsis: Unspecified organism. Patient with tachycardia, heart rate of 100, respiratory rate of 20, and temperature of 100.8 on presentation. With associated lactic acidosis, lactic acid of 3.9 Follow-up on blood cultures Repeat lactic acid Follow up on UA CXR negative Continue vancomycin and Rocephin #Type 2 diabetes #Hyperglycemia: Improved. Hold oral diabetes medications Sliding scale insulin and hypoglycemia protocol Follow up on hemoglobin A1c #Heart failure with reduced ejection fraction Patient with EF of 40 to 45% on echocardiogram from 06/23/2019 Daily weights If patient reports shortness of breath, give 40 mEq of IV Continue aspirin and Lipitor Hold lisinopril due to MONSTER. #Hypertension: Hold lisinopril Continue verapamil #Anxiety and depression: Continue Effexor DVT PPx: Heparin GI PPx: Diabetic diet Code Status: Full Code
[2019-08-01] MEDS: Fenofibrate Nanocrystallized 145 MG Tab PO SCH (09:54)
[2019-08-01] MEDS: cefTRIAXone 1 GM in Sodium Chloride 0.9% 50 ML IV SCH (20:56)
[2019-08-01] MEDS: Vancomycin 2 GM in Sodium Chloride 0.9% 500 ML IV SCH (21:41)
[2019-08-02] MEDS: Heparin Sodium 5,000 Units/ML Vial SUBCUT SCH (05:42)
[2019-08-02 07:01] LABS: ANION GAP 13.4 mEq/L (7-13); CHLORIDE,CL 104 mmol/L (98-107); SODIUM,NA 138 mmol/L (136-145)
[2019-08-02] MEDS: Insulin Lispro 100 Units/ML 3 ML Vial SUBCUT SCH ×2 (09:24→12:23)
[2019-08-02] MEDS: Fenofibrate Nanocrystallized 145 MG Tab PO SCH (09:25)
[2019-08-02] MEDS: lamoTRIgine 100 MG Tab PO SCH (09:25)
[2019-08-02] MEDS: Aspirin 81 MG Tab.EC PO SCH (09:25)
[2019-08-02] MEDS: atorvaSTATin 20 MG Tab PO SCH (09:25)
[2019-08-02] MEDS: Verapamil 180 MG Tab.ER PO SCH (09:26)
[2019-08-02] MEDS: Venlafaxine 37.5 MG Cap.ER PO SCH (09:26)
--- NOTE | 2019-08-02 10:58 | PCM.DCSUM1 ---
Discharge Summary - Hospital Course Free Text/Narrative:: Mr. Go is a 38-year-old male with medical history significant for nonischemic cardiomyopathy with EF of 40 to 45% on echocardiogram from 06/23/2019 , type 2 diabetes on oral medications, dyslipidemia, hypertension, Tourette syndrome, depression, borderline personality disorder, anxiety, and history of suicidal attempt in 2019 who was admitted for acute kidney injury, hyperkalemia with potassium of 5.2, and severe sepsis. Patient's creatinine on presentation was 2.64. He was tachycardic and tachypneic. He was given nebulized albuterol , IV regular insulin, and Kayexalate. Potassium came down to 4.2. He was started on IV fluids and vancomycin and Zosyn. Blood cultures remained negative. Urine output improved. Creatinine came down to 1.2. Blood glucose on presentation was in the 400s. He was started on sliding scale insulin hypoglycemia protocol. Blood glucose improved. Patient is hemodynamically stable with significant clinical improvement. Patient is agreeable to continuing oral antibiotics as outpatient. 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 To follow-up with PCP. He was instructed on the importance of adhering to his medications and frequent monitoring of his blood glucose. He was encouraged to work on lifestyle medication including dietary modifications and increase physical activities. HPI Initial Comments: Mr. Go is a 38-year-old male with medical history significant for nonischemic cardiomyopathy with EF of 40 to 45% on echocardiogram from 06/23/2019 , type 2 diabetes on oral medications, dyslipidemia, hypertension, Tourette syndrome, depression, borderline personality disorder, anxiety, and history of suicidal attempt in 2019 who presented to the ED with complaints of generalized malaise and elevated blood glucose and was found to have hyperkalemia and acute renal failure. Patient reports that he was his normal self today. Reports that he was helping a friend. They went to a bar where the friend was drinking but he was drinking water. States that he had been keeping hydrated because they were working in the heat. Reports that he felt nauseous and went to the bathroom and had a small amount of greenish emesis. States that he continued to feel unwell so went to home where he had a second episode of emesis, this time larger quantity. Denies any hematemesis. States that he went to take a shower thinking that that may make it feel better but felt lightheaded and also had chills after the shower. He wrapped himself in a blanket. Went to check his blood glucose and was greater than 400 so called the ED and he was asked to come into the emergency room. Reports that he had a small amount of urine today. Reports chronic constipation. Reports intermittent nonproductive cough. Denies any dysuria or hematuria. Denies any diarrhea, melena, hematochezia, edema, chest pain, shortness of breath, or any new symptoms. Diagnosis: Stroke: No - Discharge Data Discharge Date: 08/02/19 Discharge Disposition: Home, Self-Care 01 Condition: Stable - Referral to Home Health Primary Care Physician: PCP Unobtainable - Discharge Diagnosis/Problem(s) (1) Acute renal failure SNOMED Code(s): 55775444 ICD Code: N17.9 - ACUTE KIDNEY FAILURE, UNSPECIFIED Status: Acute Current Visit: Yes (2) Hyperglycemia SNOMED Code(s): 82253020 ICD Code: R73.9 - HYPERGLYCEMIA, UNSPECIFIED Status: Acute Current Visit : Yes (3) DM hyperosmolarity type II SNOMED Code(s): 59066856, 85902553 ICD Code: E11.00 - TYPE 2 DIAB W HYPROSM W/O NONKET HYPRGLY-HYPROS COMA ( [facility]) Status: Acute Current Visit: Yes (4) Sepsis SNOMED Code(s): 61571097 ICD Code: A41.9 - SEPSIS, UNSPECIFIED ORGANISM Status: Acute Current Visit: Yes (5) Lactic acidosis SNOMED Code(s): 84433115 ICD Code: E87.2 - ACIDOSIS Status: Acute Current Visit: Yes (6) CHF (congestive heart failure) SNOMED Code(s): 90701933 ICD Code: I50.9 - HEART FAILURE, UNSPECIFIED Status: Acute Current Visit : Yes (7) Depressive disorder SNOMED Code(s): 35127221 ICD Code: F32.9 - MAJOR DEPRESSIVE DISORDER, SINGLE EPISODE, UNSPECIFIED Status: Acute Current Visit: No - Discharge Plan *PRESCRIPTION DRUG MONITORING PROGRAM REVIEWED*: No *COPY OF PRESCRIPTION DRUG MONITORING REPORT IN PATIENT SHIRIN: No Prescriptions/Med Rec: Doxycycline [Vibra-Tabs] 100 mg PO Q12HR #10 tab Cefpodoxime [Vantin] 200 mg PO Q12H #10 tablet Home Medications: Home Meds metFORMIN [Glucophage XR] 1,000 mg PO BIDMEALS 10/31/17 [History] Fenofibrate 160 mg PO DAILY 10/30/18 [History] Linagliptin [Tradjenta] 5 mg PO DAILY 10/30/18 [History] atorvaSTATin Calcium [Atorvastatin Calcium] 40 mg PO DAILY 10/30/18 [History] glipiZIDE [Glucotrol] 10 mg PO BID 10/30/18 [History] lamoTRIgine [Lamictal] 50 mg PO DAILY 01/23/19 [History] Aspirin [Aspirin EC] 81 mg PO DAILY 06/23/19 [History] Magnesium Oxide 400 mg PO BID 06/23/19 [History] Venlafaxine [Effexor XR] 225 mg PO DAILY 06/23/19 [History] Verapamil HCl [Calan Sr] 180 mg PO DAILY 06/23/19 [History] lisinopriL [Lisinopril] 40 mg PO DAILY 07/31/19 [History] Cefpodoxime [Vantin] 200 mg PO Q12H #10 tablet 08/02/19 [Rx] Doxycycline [Vibra-Tabs] 100 mg PO Q12HR #10 tab 08/02/19 [Rx] Patient Handouts: Furosemide tablets Referrals: Maryellen Salgado NP [Ordering Only Provider] - - Discharge Summary/Plan Comment DC Time >30 min.: Yes - General Info Date of Service: 08/02/19 Admission Dx/Problem (Free Text: Admission Diagnosis/Problem Admission Diagnosis/Problem Acute kidney injury Subjective Update: Patient reports that he feels much better today. States that he has been ambulating in the [place]. Had a bowel movement this morning. Noticed blood on the toilet paper but that is not unusual for him. He denies chest pains, shortness of breath, fevers, chills, nausea, vomiting, diarrhea, constipation, dysuria, hematuria, or any new symptoms. Functional Status: Reports: Pain Controlled - Patient Data Vitals - Most Recent: Last Vital Signs Temp 96.7 F L 08/02/19 08:00 Pulse 73 08/02/19 08:00 Resp 20 08/02/19 08:00 BP 116/58 L 08/02/19 08:00 Pulse Ox 96 08/02/19 08:00 Weight - Most Recent: 294 lb 4 oz I&O - Last 24 hours: Intake & Output 08/01/19 08/02/19 08/02/19 22:59 06:59 14:59 Intake Total 200 Output Total 650 2450 Balance -450 -2450 Lab Results - Last 24 hrs: Laboratory Results - last 24 hr 08/01/19 08/01/19 08/01/19 Range/Units 11:54 16:46 20:55 Sodium (136-145) mmol/L Potassium (3.5-5.1) mmol/L Chloride (98-107) mmol/L Carbon Dioxide (21-32) mmol/L Anion Gap (7-13) mEq/L BUN (7-18) mg/dL Creatinine (0.70-1.30) mg/dL Est Cr Clr Drug Dosing mL/min Estimated GFR (MDRD) Glucose (74-99) mg/dL POC Glucose 227 H 244 H 228 H (70-105) mg/dl Calcium (8.5-10.1) mg/dL Magnesium (1.8-2.4) mg/dL 08/02/19 08/02/19 Range/Units 06:15 07:48 Sodium 138 (136-145) mmol/L Potassium 4.4 (3.5-5.1) mmol/L Chloride 104 (98-107) mmol/L Carbon Dioxide 25 (21-32) mmol/L Anion Gap 13.4 H (7-13) mEq/L BUN 12 (7-18) mg/dL Creatinine 1.21 (0.70-1.30) mg/dL Est Cr Clr Drug Dosing 89.96 mL/min Estimated GFR (MDRD) > 60 Glucose 251 H (74-99) mg/dL POC Glucose 241 H (70-105) mg/dl Calcium 8.3 L (8.5-10.1) mg/dL Magnesium 1.8 (1.8-2.4) mg/dL JOAN Results - Last 24 hrs: Microbiology 07/31/19 17:05 Aerobic Blood Culture - Preliminary Blood - Venous - Lab Draw NO GROWTH AFTER 1 DAY Anaerobic Blood Culture - Preliminary NO GROWTH AFTER 1 DAY 07/31/19 17:00 Aerobic Blood Culture - Preliminary Blood - Venous NO GROWTH AFTER 1 DAY Anaerobic Blood Culture - Preliminary NO GROWTH AFTER 1 DAY Med Orders - Current: Current Medications Acetaminophen (Tylenol) 650 mg PO Q6H PRN PRN Reason: Pain (Mild 1-3)/fever Aspirin (Halfprin) 81 mg PO DAILY [facility] Last Admin: 08/02/19 09:25 Dose: 81 mg Atorvastatin Calcium (Lipitor) 40 mg PO DAILY [facility] Last Admin: 08/02/19 09:25 Dose: 40 mg Dextrose/Water (Dextrose 50% In Water) 25 ml IVPUSH ASDIRECTED PRN PRN Reason: Hypoglycemia Fenofibrate (Tricor) 145 mg PO DAILY [facility] Last Admin: 08/02/19 09:25 Dose: 145 mg Glucagon (Glucagen) 1 mg IM ONETIME PRN PRN Reason: Hypoglycemia Heparin Sodium (Porcine) (Heparin Sodium) 5,000 units SUBCUT Q8HR [facility] Last Admin: 08/02/19 05:42 Dose: 5,000 units Sodium Chloride (Normal Saline) 1,000 mls @ 125 mls/hr IV ASDIRECTED [facility] Last Infusion: 08/02/19 07:27 Dose: Infused Ceftriaxone Sodium 1 gm/ (Sodium Chloride) 50 mls @ 100 mls/hr IV Q24H [facility] Last Infusion: 08/01/19 21:43 Dose: Infused Vancomycin HCl 1.5 gm/ Premix 300 mls @ 200 mls/hr IV Q12H [facility] Last Admin: 08/02/19 10:39 Dose: 200 mls/hr Insulin Human Lispro (Humalog) 0 unit SUBCUT WITHMEALSANDBED [facility]; Protocol Last Admin: 08/02/19 09:24 Dose: 2 units Lamotrigine (Lamotrigine) 50 mg PO DAILY [facility] Last Admin: 08/02/19 09:25 Dose: 50 mg Magnesium Oxide (Magnesium Oxide) 500 mg PO BID [facility] Last Admin: 08/02/19 09:25 Dose: 500 mg Ondansetron HCl (Zofran Odt) 4 mg PO Q6H PRN PRN Reason: nausea, able to take PO Ondansetron HCl (Zofran) 4 mg IVPUSH Q6H PRN PRN Reason: Nausea/Vomiting Senna/Docusate Sodium (Senna Plus) 1 tab PO BEDTIME PRN PRN Reason: Constipation Sodium Chloride (Saline Flush) 10 ml FLUSH ASDIRECTED PRN PRN Reason: Keep Vein Open Last Admin: 07/31/19 16:05 Dose: 10 ml Vancomycin HCl (Pharmacy To Dose - Vancomycin) 1 dose .XX ASDIRECTED [facility] Venlafaxine HCl (Effexor Xr) 225 mg PO DAILY [facility] Last Admin: 08/02/19 09:26 Dose: 225 mg Verapamil HCl (Calan Sr) 180 mg PO DAILY [facility] Last Admin: 08/02/19 09:26 Dose: 180 mg Discontinued Medications Albuterol (Proventil Neb Soln) 2.5 mg NEB Q2H [facility] Stop: 07/31/19 21:01 Last Admin: 07/31/19 21:21 Dose: 2.5 mg Calcium Gluconate (Calcium Gluconate) 1 gm IVPUSH ONETIME ONE Stop: 07/31/19 18:58 Last Admin: 07/31/19 20:00 Dose: 1 gm Sodium Chloride (Normal Saline) 1,000 mls @ 999 mls/hr IV .BOLUS ONE Stop: 07/31/19 16:47 Last Admin: 07/31/19 16:08 Dose: 999 mls/hr Sodium Chloride (Normal Saline) 1,000 mls @ 999 mls/hr IV ASDIRECTED [facility] Last Admin: 07/31/19 17:14 Dose: 999 mls/hr Vancomycin HCl 2 gm/ Sodium (Chloride) 500 mls @ 250 mls/hr IV Q24H [facility] Stop: 08/02/19 01:00 Last Admin: 08/01/19 21:41 Dose: 250 mls/hr Insulin Human Regular (Humulin R) 10 unit IV ONETIME ONE Stop: 07/31/19 18:58 Last Admin: 07/31/19 19:57 Dose: 10 units Magnesium Oxide (Magnesium Oxide) 250 mg PO BID [facility] Stop: 08/01/19 21:01 Last Admin: 08/01/19 21:00 Dose: 250 mg Ondansetron HCl (Zofran) 4 mg IVPUSH ONETIME ONE Stop: 07/31/19 16:18 Last Admin: 07/31/19 16:24 Dose: 4 mg Sodium Polystyrene Sulfonate (Kayexalate) 15 gm PO ONETIME ONE Stop: 07/31/19 18:58 Last Admin: 07/31/19 20:18 Dose: 15 gm - Exam General: Reports: Alert, Oriented, Cooperative, No Acute Distress HEENT: Reports: Pupils Equal, Pupils Reactive, Mucous Membr. Moist/[place] Neck: Reports: Supple, Trachea Midline Lungs: Reports: Clear to Auscultation, Normal Respiratory Effort Cardiovascular: Reports: Regular Rate, Regular Rhythm GI/Abdominal Exam: Normal Bowel Sounds, Soft, Non-Tender, No Distention Extremities: Normal Inspection, Non-Tender, No Pedal Edema Skin: Reports: Warm, Dry, Intact Neurological: Reports: No New Focal Deficit Psy/Mental Status: Reports: Alert, Normal Affect, Normal Mood
== END 2019-08-02 12:50 | disposition home or self-care (01) | DRG 682 ==
LOC: DL.ED 15:45 → DL.MS 17:35 → UNDOADMOB 17:35 → DL.MS 17:36 → OBSVTOIN 17:36
PROVIDERS: ADMIT Internal Medicine; ATTEND Internal Medicine
DX: N17.9 Acute kidney failure, unspecified (principal); E86.0 Dehydration; E11.65 Type 2 diabetes mellitus with hyperglycemia; I10 Essential (primary) hypertension; E11.00 Type 2 diabetes mellitus with hyperosmolarity without nonketotic hyperglycemic-hyperosmolar coma (NKHHC); A41.9 Sepsis, unspecified organism; K52.9 Noninfective gastroenteritis and colitis, unspecified; F95.2 Tourette's disorder; I50.21 Acute systolic (congestive) heart failure; E78.00 Pure hypercholesterolemia, unspecified; F60.3 Borderline personality disorder; F43.10 Post-traumatic stress disorder, unspecified; E66.9 Obesity, unspecified; K59.09 Other constipation; F41.9 Anxiety disorder, unspecified; Z79.84 Long term (current) use of oral hypoglycemic drugs; F32.9 Major depressive disorder, single episode, unspecified; E87.5 Hyperkalemia; I11.0 Hypertensive heart disease with heart failure; Z88.0 Allergy status to penicillin; Z91.030 Bee allergy status; Z79.82 Long term (current) use of aspirin; Z79.899 Other long term (current) drug therapy; Z87.891 Personal history of nicotine dependence; Z28.82 Immunization not carried out because of caregiver refusal
CPT/HCPCS: 36415; 71045; 80048; 80053; 80305-QW; 80307; 81001; 82009; 82962; 83036; 83605; 83735; 84100; 85025; 85027; 87040; 94640; 96361; 96374; 99284; 99285-25; A9270-GY; J0610; J0696; J1644; J1815-GY; J2405; J3370; J7030; J7040; J7050; J7613-GY

== ENCOUNTER 2019-10-13 20:38 | Emergency (ER) | payer MEDICARE, MEDICAID ==
[2019-10-13] MEDS ORDERED: Sodium Chloride 0.9% 10 ML Syringe FLUSH PRN (20:53)
--- NOTE | 2019-10-13 21:18 | CR ---
PROCEDURE INFORMATION: Exam: XR Chest, 1 View Exam date and time: 10/13/2019 8:53 PM Age: 39 years old Clinical indication: Chest pain TECHNIQUE: Imaging protocol: XR of the chest Views: 1 view. COMPARISON: CR Chest 1V Frontal 07/31/2019 7:45 PM FINDINGS: Lungs: Lungs are clear bilaterally. Pleural space: No pleural effusion. No pneumothorax. Heart/Mediastinum: The cardiac silhouette and mediastinal contours are unremarkable. Bones/joints: Unremarkable for age. IMPRESSION: No acute cardiopulmonary process.
--- NOTE | 2019-10-13 21:22 | EDM.PDOC ---
ED HPI GENERAL MEDICAL PROBLEM - General Chief Complaint: Chest Pain Stated Complaint: NASEOUS,PASSED OUT,DIZZY, [id number] Time Seen by Provider: 10/13/19 21:00 Source of Information: Reports: Patient, RN, RN Notes Reviewed History Limitations: Reports: No Limitations - History of Present Illness INITIAL COMMENTS - FREE TEXT/NARRATIVE: Patient presents to ER with complaint of dizziness and not feeling well. Patient states he has been feeling fine until today. States he ate supper and did not feel well after supper. States he had some dry heaves, and some abdomin al pain. Denies vomiting, denies diarrhea. Denies fever or chills recently. Patient states he is diabetic, does not check his blood sugar because he does not like needles. Patient states he takes oral agents for glucose. Patient states he has had ongoing shortness of breath, but this has not worsened today. He states he had a loop recorder placed on September 29, has a cardiac MRI on October 21, and follow-up appointment on October 23. Patient states after dry heaving today he laid down and states he thinks he "passed out". Patient was lying down at this time, did not fall or hit his head. Patient appears diaphoretic, states he sweats a lot. Abdominal pain has resolved, but patient complains of a pressure in his chest. Onset: Today, Sudden - Related Data Allergies Allergy/AdvReac Type Severity Reaction Status Date / Time Penicillins Allergy Rash Verified 10/13/19 21:12 bee stings Allergy Swelling Uncoded 10/13/19 21:12 Home Meds: Home Meds metFORMIN [Glucophage XR] 1,000 mg PO BIDMEALS 10/31/17 [History] Fenofibrate 160 mg PO DAILY 10/30/18 [History] Linagliptin [Tradjenta] 5 mg PO DAILY 10/30/18 [History] atorvaSTATin Calcium [Atorvastatin Calcium] 40 mg PO DAILY 10/30/18 [History] glipiZIDE [Glucotrol] 10 mg PO BID 10/30/18 [History] lamoTRIgine [Lamictal] 50 mg PO DAILY 01/23/19 [History] Aspirin [Aspirin EC] 81 mg PO DAILY 06/23/19 [History] Magnesium Oxide 400 mg PO BID 06/23/19 [History] Venlafaxine [Effexor XR] 225 mg PO DAILY 06/23/19 [History] Verapamil HCl [Calan Sr] 180 mg PO DAILY 06/23/19 [History] lisinopriL [Lisinopril] 40 mg PO DAILY 07/31/19 [History] Past Medical History HEENT History: Reports: Otitis Media Cardiovascular History: Reports: High Cholesterol, Hypertension, Syncope Respiratory History: Reports: Bronchitis, Recurrent Gastrointestinal History: Reports: Chronic Constipation, Chronic Diarrhea Genitourinary History: Reports: None Musculoskeletal History: Reports: Fracture Neurological History: Reports: Other (See Below) Other Neuro History: Tourette's syndrome Psychiatric History: Reports: Anxiety, Depression, PTSD, Other (See Below) Other Psychiatric History: borderline personality disorder Endocrine/Metabolic History: Reports: Diabetes, Type II, Obesity/BMI 30+ Hematologic History: Reports: None Immunologic History: Reports: None Oncologic (Cancer) History: Reports: None Dermatologic History: Reports: None - Infectious Disease History Infectious Disease History: Reports: Chicken Pox - Past Surgical History Head Surgeries/Procedures: Reports: None HEENT Surgical History: Reports: Myringotomy w Tube(s), Tonsillectomy Cardiovascular Surgical History: Reports: None GI Surgical History: Reports: None Male Surgical History: Reports: None Neurological Surgical History: Reports: None Musculoskeletal Surgical History: Reports: Other (See Below) Other Musculoskeletal Surgeries/Procedures:: left foot surgery Oncologic Surgical History: Reports: None Social & Family History - Family History Family Medical History: Noncontributory : Reports: Renal Disease/Insufficiency - Tobacco Use Smoking Status *Q: Never Smoker - Caffeine Use Caffeine Use: Reports: None Caffeine Use Comment: 3 cans daily - Recreational Drug Use Recreational Drug Use: No - Living Situation & Occupation Living situation: Reports: with Family Occupation: Disabled ED ROS GENERAL - Review of Systems Review Of Systems: Comprehensive ROS is negative, except as noted in HPI. - Physical Exam Exam: See Below Exam Limited By: No Limitations General Appearance: Alert, WD/WN, No Apparent Distress Eye Exam: Bilateral Eye: EOMI, Normal Inspection Ears: Normal External Exam, Hearing Grossly Normal Nose: Normal Inspection Throat/Mouth: Normal Inspection, Normal Lips, Normal Teeth, Normal Gums, Normal Oropharynx, Normal Voice, No Airway Compromise Head Exam: Atraumatic, Normocephalic Neck: Normal Inspection, Supple, Non-Tender, Full Range of Motion Respiratory/Chest: No Respiratory Distress, Lungs Clear, Normal Breath Sounds, No Accessory Muscle Use, Chest Non-Tender Cardiovascular: Normal Peripheral Pulses, Regular Rate, Rhythm, No Edema, No Gallop, No JVD, No Murmur, No Rub GI/Abdominal: Normal Bowel Sounds, Soft, Non-Tender, No Organomegaly, No Distention, No Abnormal Bruit, No Mass (Male) Exam: Deferred Rectal (Males) Exam: Deferred Neuro Exam (Abbreviated): Alert, Oriented, CN II-XII Intact, Normal Cognition, Normal Gait, Normal Reflexes, No Motor/Sensory Deficits Back Exam: Normal Inspection, Full Range of Motion, NT Extremities: Normal Inspection, Normal Range of Motion, Non-Tender, No Pedal Edema, Normal Capillary Refill Psychiatric: Normal Affect, Normal Mood Skin Exam: Intact, Normal Color, No Rash, Cool, Diaphoretic Course - Vital Signs Last Recorded V/S: Last Vital Signs Temp 97.8 F 10/14/19 01:53 Pulse 98 10/14/19 01:53 Resp 20 10/14/19 01:53 BP 126/67 10/14/19 01:53 Pulse Ox 95 10/14/19 01:53 - Orders/Labs/Meds Orders: Active Orders 24 hr Category Date Time Status Blood Glucose Check, Bedside [RC] ONETIME Care 10/13/19 20:57 Active Blood Glucose Check, Bedside [RC] ONETIME Care 10/13/19 22:05 Active Blood Glucose Check, Bedside [RC] ONETIME Care 10/14/19 01:00 Active EKG Documentation Completion [RC] STAT Care 10/13/19 20:53 Active EKG Documentation Completion [RC] STAT Care 10/14/19 01:00 Active Peripheral IV Care [RC] . DIRECTED Care 10/13/19 20:54 Active Sodium Chloride 0.9% [Saline Flush] Med 10/13/19 20:53 Active 10 ml FLUSH ASDIRECTED PRN Peripheral IV Insertion Adult [OM.PC] Stat Oth 10/13/19 20:53 Ordered Medication Orders Sodium Chloride (Saline Flush) 10 ml FLUSH ASDIRECTED PRN PRN Reason: Keep Vein Open Last Admin: 10/13/19 20:50 Dose: 10 ml Documented by: SARAH Labs: Laboratory Tests 08/24/20 08/24/20 08/24/20 Range/Units 20:56 20:56 20:56 WBC 9.5 (5.0-10.0) 10^3/uL RBC 4.92 (4.6-6.2) 10^6/uL Hgb 15.2 D (14.0-18.0) g/dL Hct 42.9 (40.0-54.0) % MCV 87.2 D (80-100) fL MCH 30.9 (27.0-34.0) pg MCHC 35.4 H (33.0-35.0) g/dL Plt Count 314 (150-450) 10^3/uL Neut % (Auto) 55.9 (42.2-75.2) % Lymph % (Auto) 35.5 (20.5-50.1) % [place] % (Auto) 6.4 (2-8) % Eos % (Auto) 1.9 (1.0-3.0) % Baso % (Auto) 0.3 (0.0-1.0) % PT 9.6 (9.0-12.0) SEC INR 1.0 (0.9-1.2) Sodium 133 L (136-145) mmol/L Potassium 4.4 (3.5-5.1) mmol/L Chloride 97 L (98-107) mmol/L Carbon Dioxide 23 (21-32) mmol/L Anion Gap 17.4 H (7-13) mEq/L BUN 18 (7-18) mg/dL Creatinine 1.66 H (0.70-1.30) mg/dL Est Cr Clr Drug Dosing 66.85 mL/min Estimated GFR (MDRD) 46 BUN/Creatinine Ratio 10.8 (No establ ref range) Glucose 371 H (74-99) mg/dL POC Glucose (70-105) mg/dl Calcium 9.2 (8.5-10.1) mg/dL Total Bilirubin 0.6 (0.2-1.0) mg/dL AST 14 L (15-37) U/L ALT 44 (16-63) U/L Alkaline Phosphatase 71 (46-116) U/L Troponin I < 0.017 (0.000-0.056) ng/mL B-Natriuretic Peptide (0-100) pg/ml Total Protein 8.1 (6.4-8.2) g/dL Albumin 4.4 (3.4-5.0) g/dL Globulin 3.7 Albumin/Globulin Ratio 1.2 Urine Color (YELLOW) Urine Appearance (CLEAR) Urine pH (5.0-9.0) Ur Specific Serena (1.005-1.030) Urine Protein (NEGATIVE) Urine Glucose (UA) (NEGATIVE) Urine Ketones (NEGATIVE) Urine Occult Blood (NEGATIVE) Urine Nitrite (NEGATIVE) Urine Bilirubin (NEGATIVE) Urine Urobilinogen (0.2-1.0) mg/dL Ur Leukocyte Esterase (NEGATIVE) Urine Opiates Screen (NEGATIVE) Ur Oxycodone Screen (NEGATIVE) Urine Methadone Screen (NEGATIVE) Ur Barbiturates Screen (NEGATIVE) U Tricyclic Antidepress (NEGATIVE) Ur Phencyclidine Scrn (NEGATIVE) Ur Amphetamine Screen (NEGATIVE) U Methamphetamines Scrn (NEGATIVE) Urine MDMA Screen (NEGATIVE) U Benzodiazepines Scrn (NEGATIVE) Urine Cocaine Screen (NEGATIVE) U Marijuana (THC) Screen (NEGATIVE) Ethyl Alcohol < 3 (0) mg/dL 10/13/19 10/13/19 10/13/19 Range/Units 20:56 21:15 21:15 WBC (5.0-10.0) 10^3/uL RBC (4.6-6.2) 10^6/uL Hgb (14.0-18.0) g/dL Hct (40.0-54.0) % MCV (80-100) fL MCH (27.0-34.0) pg MCHC (33.0-35.0) g/dL Plt Count (150-450) 10^3/uL Neut % (Auto) (42.2-75.2) % Lymph % (Auto) (20.5-50.1) % [place] % (Auto) (2-8) % Eos % (Auto) (1.0-3.0) % Baso % (Auto) (0.0-1.0) % PT (9.0-12.0) SEC INR (0.9-1.2) Sodium (136-145) mmol/L Potassium (3.5-5.1) mmol/L Chloride (98-107) mmol/L Carbon Dioxide (21-32) mmol/L Anion Gap (7-13) mEq/L BUN (7-18) mg/dL Creatinine (0.70-1.30) mg/dL Est Cr Clr Drug Dosing mL/min Estimated GFR (MDRD) BUN/Creatinine Ratio (No establ ref range) Glucose (74-99) mg/dL POC Glucose (70-105) mg/dl Calcium (8.5-10.1) mg/dL Total Bilirubin (0.2-1.0) mg/dL AST (15-37) U/L ALT (16-63) U/L Alkaline Phosphatase (46-116) U/L Troponin I (0.000-0.056) ng/mL B-Natriuretic Peptide < 5 (0-100) pg/ml Total Protein (6.4-8.2) g/dL Albumin (3.4-5.0) g/dL Globulin Albumin/Globulin Ratio Urine Color Yellow (YELLOW) Urine Appearance Clear (CLEAR) Urine pH 7.0 (5.0-9.0) Ur Specific Serena 1.015 (1.005-1.030) Urine Protein Negative (NEGATIVE) Urine Glucose (UA) 500 H (NEGATIVE) Urine Ketones Negative (NEGATIVE) Urine Occult Blood Negative (NEGATIVE) Urine Nitrite Negative (NEGATIVE) Urine Bilirubin Negative (NEGATIVE) Urine Urobilinogen 0.2 (0.2-1.0) mg/dL Ur Leukocyte Esterase Negative (NEGATIVE) Urine Opiates Screen Negative (NEGATIVE) Ur Oxycodone Screen Negative (NEGATIVE) Urine Methadone Screen Negative (NEGATIVE) Ur Barbiturates Screen Negative (NEGATIVE) U Tricyclic Antidepress Negative (NEGATIVE) Ur Phencyclidine Scrn Negative (NEGATIVE) Ur Amphetamine Screen Negative (NEGATIVE) U Methamphetamines Scrn Negative (NEGATIVE) Urine MDMA Screen Negative (NEGATIVE) U Benzodiazepines Scrn Negative (NEGATIVE) Urine Cocaine Screen Negative (NEGATIVE) U Marijuana (THC) Screen Negative (NEGATIVE) Ethyl Alcohol (0) mg/dL 10/14/19 10/14/19 Range/Units 01:10 01:47 WBC (5.0-10.0) 10^3/uL RBC (4.6-6.2) 10^6/uL Hgb (14.0-18.0) g/dL Hct (40.0-54.0) % MCV (80-100) fL MCH (27.0-34.0) pg MCHC (33.0-35.0) g/dL Plt Count (150-450) 10^3/uL Neut % (Auto) (42.2-75.2) % Lymph % (Auto) (20.5-50.1) % [place] % (Auto) (2-8) % Eos % (Auto) (1.0-3.0) % Baso % (Auto) (0.0-1.0) % PT (9.0-12.0) SEC INR (0.9-1.2) Sodium (136-145) mmol/L Potassium (3.5-5.1) mmol/L Chloride (98-107) mmol/L Carbon Dioxide (21-32) mmol/L Anion Gap (7-13) mEq/L BUN (7-18) mg/dL Creatinine (0.70-1.30) mg/dL Est Cr Clr Drug Dosing mL/min Estimated GFR (MDRD) BUN/Creatinine Ratio (No establ ref range) Glucose (74-99) mg/dL POC Glucose 229 H (70-105) mg/dl Calcium (8.5-10.1) mg/dL Total Bilirubin (0.2-1.0) mg/dL AST (15-37) U/L ALT (16-63) U/L Alkaline Phosphatase (46-116) U/L Troponin I < 0.017 (0.000-0.056) ng/mL B-Natriuretic Peptide (0-100) pg/ml Total Protein (6.4-8.2) g/dL Albumin (3.4-5.0) g/dL Globulin Albumin/Globulin Ratio Urine Color (YELLOW) Urine Appearance (CLEAR) Urine pH (5.0-9.0) Ur Specific [place] (1.005-1.030) Urine Protein (NEGATIVE) Urine Glucose (UA) (NEGATIVE) Urine Ketones (NEGATIVE) Urine Occult Blood (NEGATIVE) Urine Nitrite (NEGATIVE) Urine Bilirubin (NEGATIVE) Urine Urobilinogen (0.2-1.0) mg/dL Ur Leukocyte Esterase (NEGATIVE) Urine Opiates Screen (NEGATIVE) Ur Oxycodone Screen (NEGATIVE) Urine Methadone Screen (NEGATIVE) Ur Barbiturates Screen (NEGATIVE) U Tricyclic Antidepress (NEGATIVE) Ur Phencyclidine Scrn (NEGATIVE) Ur Amphetamine Screen (NEGATIVE) U Methamphetamines Scrn (NEGATIVE) Urine MDMA Screen (NEGATIVE) U Benzodiazepines Scrn (NEGATIVE) Urine Cocaine Screen (NEGATIVE) U Marijuana (THC) Screen (NEGATIVE) Ethyl Alcohol (0) mg/dL Meds: Medications Generic Name Dose Route Start Last Admin Trade Name Freq PRN Reason Stop Dose Admin Sodium Chloride 10 ml 10/13/19 20:53 10/13/19 20:50 Saline Flush FLUSH 10 ml ASDIRECTED PRN Administration Keep Vein Open Discontinued Medications Generic Name Dose Route Start Last Admin Trade Name Freq PRN Reason Stop Dose Admin Sodium Chloride 1,000 mls @ 999 mls/hr 10/13/19 21:32 10/13/19 23:49 Normal Saline IV 10/13/19 22:32 Infused .BOLUS ONE Infusion Insulin Human Regular 10 unit 10/13/19 21:33 10/13/19 21:41 Humulin R IV 10/13/19 21:34 10 units ONETIME ONE Administration - Radiology Interpretation Free Text/Narrative:: Chest xray: PROCEDURE INFORMATION: Exam: XR Chest, 1 View Exam date and time: 10/13/2019 8:53 PM Age: 39 years old Clinical indication: Chest pain TECHNIQUE: Imaging protocol: XR of the chest Views: 1 view. COMPARISON: CR Chest 1V Frontal 07/31/2019 7:45 PM FINDINGS: Lungs: Lungs are clear bilaterally. Pleural space: No pleural effusion. No pneumothorax. Heart/Mediastinum: The cardiac silhouette and mediastinal contours are unremarkable. Bones/joints: Unremarkable for age. IMPRESSION: No acute cardiopulmonary process. Thank you for allowing us to participate in the care of your patient. Dictated and Authenticated by: Jammie Gonzalez MD 10/13/2019 9:18 PM Central Time ([place] & [place]) See rad report Departure - Departure Time of Disposition: 01:57 Disposition: Home, Self-Care 01 Condition: Fair Clinical Impression: Hyperglycemia, Nonspecific chest pain Diabetes type 2, uncontrolled Qualifiers: Glycemic state: with hyperglycemia Qualified Code(s): E11.65 - Type 2 diabetes mellitus with hyperglycemia - Discharge Information *PRESCRIPTION DRUG MONITORING PROGRAM REVIEWED*: No *COPY OF PRESCRIPTION DRUG MONITORING REPORT IN PATIENT SHIRIN: No Instructions: Type 2 Diabetes Mellitus, Self Care, Adult, [id number], Angina, [id number], Chest Wall Pain, [id number], Nonspecific Chest Pain, Adult, [id number] Forms: ED Department Discharge Additional Instructions: Follow-up with your primary care provider regarding elevated blood sugars Return to the ER with any worsening of problems Make an appointment to see your primary care provider in the clinic Sepsis Event Note (ED) - Evaluation Sepsis Screening Result: No Definite Risk - Focused Exam Vital Signs: Vital Signs Temp Pulse Resp BP BP Pulse Ox 10/14/19 01:53 97.8 F 98 20 126/67 95 10/14/19 00:45 98.0 F 94 18 130/70 95 10/13/19 23:18 97.6 F 96 20 128/69 94 L 10/13/19 21:04 97.0 F 100 18 133/72 97 - My Orders Last 24 Hours: My Active Orders 10/13/19 20:53 EKG Documentation Completion [RC] STAT Sodium Chloride 0.9% [Saline Flush] 10 ml FLUSH ASDIRECTED PRN Peripheral IV Insertion Adult [OM.PC] Stat 10/13/19 20:54 Peripheral IV Care [RC] . DIRECTED 10/13/19 20:57 Blood Glucose Check, Bedside [RC] ONETIME 10/13/19 22:05 Blood Glucose Check, Bedside [RC] ONETIME 10/14/19 01:00 Blood Glucose Check, Bedside [RC] ONETIME EKG Documentation Completion [RC] STAT - Assessment/Plan Last 24 Hours: My Active Orders 10/13/19 20:53 EKG Documentation Completion [RC] STAT Sodium Chloride 0.9% [Saline Flush] 10 ml FLUSH ASDIRECTED PRN Peripheral IV Insertion Adult [OM.PC] Stat 10/13/19 20:54 Peripheral IV Care [RC] . DIRECTED 10/13/19 20:57 Blood Glucose Check, Bedside [RC] ONETIME 10/13/19 22:05 Blood Glucose Check, Bedside [RC] ONETIME 10/14/19 01:00 Blood Glucose Check, Bedside [RC] ONETIME EKG Documentation Completion [RC] STAT
[2019-10-13 21:26] LABS: ANION GAP 17.4 mEq/L (7-13); CHLORIDE,CL 97 mmol/L (98-107); SODIUM,NA 133 mmol/L (136-145)
[2019-10-13] MEDS ORDERED: Sodium Chloride 0.9% 1,000 ML IV ONE (21:32)
[2019-10-13] MEDS ORDERED: Insulin Regular, Human 100 Units/ML 3 ML Vial IV ONE (21:33)
== END 2019-10-14 02:15 | disposition home or self-care (01) ==
LOC: DL.ED 20:38
DX: E11.65 Type 2 diabetes mellitus with hyperglycemia (principal); R07.9 Chest pain, unspecified; E78.00 Pure hypercholesterolemia, unspecified; I10 Essential (primary) hypertension; E66.9 Obesity, unspecified; F32.9 Major depressive disorder, single episode, unspecified; F41.9 Anxiety disorder, unspecified; Z88.0 Allergy status to penicillin; Z91.030 Bee allergy status; Z68.36 Body mass index [BMI] 36.0-36.9, adult; Z79.899 Other long term (current) drug therapy; Z79.82 Long term (current) use of aspirin
CPT/HCPCS: 36415; 71045; 80053; 80305-QW; 80307; 81003; 82962; 83880; 84484; 85025; 85610; 93005; 96360; 96361; 99285-25; J1815-GY; J7030